=== PATIENT | female | born 1985 | race Caucasian/White ===

== ENCOUNTER 2016-09-01 12:40 | Outpatient (CLI) | payer OTHER ==
[~2016-09-01] VITALS: Ht 165.1 cm; Wt 82.0 kg
[2016-09-01 12:55] VITALS: BP 126/75
[2016-09-01] MEDS ORDERED: ONDANSETRON 4MG/2ML VIAL (J2405) IV SCH (13:45)
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
[2016-09-01] MEDS ORDERED: FOLIC ACID IV ONE (15:00)
[2016-09-01] MEDS ORDERED: MULTIVITAMIN ADULT IV ONE (15:00)
[2016-09-01] MEDS ORDERED: THIAMINE HCL IV ONE (15:00)
[2016-09-01] MEDS ORDERED: [UNRECOGNIZED DRUG - OTHER] IV ONE (15:00)
--- NOTE | 2016-09-01 17:03 | IPNPDOC ---
Obstetrical Progress Note Date of Service The patient was seen on 09/01/16 at 16:55. Progress Note Subjective: Patient reports that she is feeling much better. She was able to tolerate clear liquid tray without vomiting. Currently denies nausea. Objective: See vital signs below. heart rate prior to being taken off the monitor was 150 bpm for the baseline with accelerations and moderate variability. Contractions have spaced out. Assessment: IUP at 34 weeks and 5 days, category 1 tracing, not in labor, nausea and vomiting in Plan: Discharge to home. Prescription written for Zofran 4 mg that can be taken every 6 hours as needed for nausea. Education done on comfort measures for nausea. Reviewed viral gastrointestinal illness then needs to run its course. Patient advised if she is unable to keep any fluids down for 24 hours that she needs to call her provider. VS, I&O, 24H, Fishbone VS, I&O, 24H, Fishbone Vital Signs Date Time Temp Pulse Resp B/P Pulse Ox O2 Delivery O2 Flow Rate FiO2 09/01/16 12:55 98.0 96 18 126/75 Room Air SÁNCHEZ REA CNM Sep 01, 2016 16:57
== END 2016-09-01 15:40 | disposition home or self-care (01) ==
LOC: M LDO 12:40
PROVIDERS: ATTEND Obstetrics & Gynecology
DX: O21.2 Late vomiting of pregnancy (principal); Z3A.34 34 weeks gestation of pregnancy; O99.513 Diseases of the respiratory system complicating pregnancy, third trimester; J45.909 Unspecified asthma, uncomplicated; O28.2 Abnormal cytological finding on antenatal screening of mother; O99.343 Other mental disorders complicating pregnancy, third trimester; F90.9 Attention-deficit hyperactivity disorder, unspecified type; F31.9 Bipolar disorder, unspecified; F42.9 Obsessive-compulsive disorder, unspecified; F84.5 Asperger's syndrome; F95.2 Tourette's disorder; Z79.899 Other long term (current) drug therapy; Z87.891 Personal history of nicotine dependence
CPT/HCPCS: 96374; J2405; J3411

== ENCOUNTER → 2016-09-14 | Outpatient (REF) | payer OTHER | LOC: M LAB REF 16:52 | PROVIDERS: ATTEND Obstetrics & Gynecology | DX: Z3A.36 36 weeks gestation of pregnancy (principal) ==

== ENCOUNTER 2016-09-24 12:19 | Inpatient (IN) | payer OTHER ==
[~2016-09-24] VITALS: Ht 165.1 cm; Wt 74.0 kg
[2016-09-24 12:40] VITALS: BP 150/81
[2016-09-24] MEDS ORDERED: LR 1,000 ML IV SCH ×2 (13:02→14:00)
[2016-09-24] MEDS ORDERED: LACTATED RINGER'S 1000 ML IV STA (13:02)
[2016-09-24] MEDS ORDERED: PRENTAB9 PO (13:07)
[2016-09-24] MEDS ORDERED: CLAR10CA3 PO (13:07)
[2016-09-24] MEDS ORDERED: ASMA220A5 IN (13:07)
[2016-09-24] MEDS ORDERED: ANTA500C PO (13:07)
[2016-09-24] MEDS ORDERED: ACET50TA PO (13:07)
[2016-09-24] MEDS ORDERED: LACTATED RINGER'S 1000 ML IV ONE (13:15)
[2016-09-24] MEDS: miSOPROStol 50 MCG 1/2 TAB (S0191) PO SCH ×2 (13:31→17:38)
[2016-09-24 13:40] LABS: BASO % 0.1 % (0.0-1.0); EOS % 0.3 % (0.0-3.0); LARGE UNSTAINED CELL # 0.1 K/mm3 (0.0-0.4); LARGE UNSTAINED CELL % 0.8 % (0.0-4.0); LYMPH # 1.5 K/mm3 (1.5-6.5); LYMPH % 11.3 % (24.0-44.0); MEAN CORPUSCULAR HEMOGLOBIN 30.7 pg (27.0-33.0); MEAN CORPUSCULAR HGB CONC 33.6 g/dl (32.0-36.5); MEAN CORPUSCULAR VOLUME 91.3 fl (80.0-96.0); MONO # 0.6 K/mm3 (0.0-0.8); MONO % 4.9 % (0.0-5.0); NEUTROPHILS # 10.5 K/mm3 (1.8-7.7); NEUTROPHILS % 82.6 % (36.0-66.0); PLATELET COUNT, AUTOMATED 346 k/mm3 (150-450); RED CELL DISTRIBUTION WIDTH 12.3 % (11.5-14.5); WHITE BLOOD COUNT 12.7 K/mm3 (4.0-10.0)
[2016-09-24 13:47] LABS: AMPHETAMINES URINE REFLEX NEGATIVE (NEGATIVE); BARBITURATES URINE REFLEX NEGATIVE (NEGATIVE); BENZODIAZEPINES URINE REFLEX NEGATIVE (NEGATIVE); COCAINE METABOLITE URINE REFLE NEGATIVE (NEGATIVE); CONTROL LINE INT CTR LINE PRESENT; METHADONE URINE REFLEX NEGATIVE (NEGATIVE); OPIATES URINE REFLEX NEGATIVE (NEGATIVE); TRICYCLIC ANTIDEPRESS UR REFL NEGATIVE (NEGATIVE)
[2016-09-24 14:50] VITALS: BP 137/74
[2016-09-24 15:41] VITALS: BP 141/86
[2016-09-24 16:47] VITALS: BP 109/72
[2016-09-24 17:38] VITALS: BP 140/65
[2016-09-24 18:38] VITALS: BP 134/65
[2016-09-24] MEDS ORDERED: FENTANYL 2MCG/ML ROPIVACAINE 0.2% NACL 250 ML CADD As Ordered ONE (19:14)
[2016-09-24] MEDS ORDERED: LACTATED RINGER'S 1000 ML IV PRN (19:52)
[2016-09-24] MEDS ORDERED: EPIDURAL/PCA KEYS XX PRN (19:52)
[2016-09-24] MEDS ORDERED: REFRIGERATOR IV KEYS XX PRN (19:52)
[2016-09-24] MEDS ORDERED: ePHEDrine SULFATE 25 MG/5 ML(5MG/ML) SYRINGE IV PRN (19:52)
[2016-09-24] MEDS ORDERED: ONDANSETRON 4MG/2ML VIAL (J2405) IV PRN (19:52)
[2016-09-24] MEDS ORDERED: FENTANYL/ROPIVACAINE/NACL CADD 250 ML EPIDURAL SCH (19:52)
[2016-09-24] MEDS ORDERED: EPIDURAL COMMENT XX SCH (19:52)
[2016-09-24] MEDS ORDERED: diphenhydrAMINE INJ 50MG/ML VIAL (J1200) IV PRN (19:52)
[2016-09-24] MEDS ORDERED: NALOXONE INJ 0.4 MG/1 ML VIAL (J2310) IV PRN (19:52)
[2016-09-24] MEDS ORDERED: OXYTOCIN 30 UNITS IN 0.9% NaCl 500ML IV BAG (J2590) As Ordered ONE (22:34)
[2016-09-24] MEDS ORDERED: OXYTOCIN DRIP 30 UNITS in APPROPRIATE DILUENT 1 EA IV SCH (23:10)
[2016-09-24] MEDS ORDERED: ACETAMINOPHEN 500 MG TAB PO PRN (23:15)
[2016-09-24] MEDS ORDERED: MEASLES,MUMPS,RUBELLA VACCINE INJ (MMR-II) (90707) SC SCH (23:15)
[2016-09-24] MEDS ORDERED: DOCUSATE SODIUM 100 MG CAP PO PRN (23:15)
[2016-09-24] MEDS ORDERED: RHOGAM 300 MCG (1500 IU) INJ (J2790) IM SCH (23:15)
[2016-09-24] MEDS ORDERED: METHYLERGONOVINE MALEATE 0.2 MG TAB PO PRN (23:15)
[2016-09-24] MEDS ORDERED: DIBUCAINE 1% OINTMENT 30GM TOP PRN (23:15)
[2016-09-24] MEDS ORDERED: METHYLERGONOVINE MALEATE 0.2 MG/ML VIAL (J2210) IM PRN (23:15)
[2016-09-24 23:19] LABS: CORD GAS ABE A -2.5; CORD GAS HCO3 A 24.9 MEQ/L; CORD GAS O2 SAT A 36.1 %; CORD GAS PCO2 A 52.4 mmHg; CORD GAS PH A 7.294 UNITS; CORD GAS SBC A 20.7 MEQ/L; CORD GAS TCO2 A 26.5 MEQ/L
[2016-09-24 23:22] LABS: CORD GAS ABE V -3.3; CORD GAS HCO3 V 23.1 MEQ/L; CORD GAS O2 SAT V 56.8 %; CORD GAS PCO2 V 46.3 mmHg; CORD GAS PH V 7.316 UNITS; CORD GAS PO2 V 23.7 mmHg; CORD GAS SBC V 20.6 MEQ/L; CORD GAS TCO2 V 24.5 MEQ/L
[2016-09-25 01:39] VITALS: BP 123/58
[2016-09-25 05:56] VITALS: BP 132/73
--- NOTE | 2016-09-25 06:51 | HPE ---
DATE OF ADMISSION: 09/24/2016 Adamaris is a 31-year-old female 7, para 2-0-4-2 with an estimated date of confinement (EDC) of 10/08/2016, estimated gestational age (EGA) 38 weeks gestation who presented to labor and delivery with gross rupture of membranes with irregular contraction, no movement. Her record reviewed. The patient does have a history of depression, bipolar and attention deficit hyperactivity disorder (ADHD). Her care was initiated late first trimester without any complication. Blood type is O+, rubella immune, hepatitis negative, HIV negative, GC chlamydia negative, 1-hour sugar testing was within normal limits. Her GBS is negative. PAST MEDICAL HISTORY: 1. Depression. 2. Anxiety. 3. Bipolar disorder. 4. History of asthma. 5. Gastrointestinal reflux disease. PAST SURGICAL HISTORY: Denies. SOCIAL HISTORY: Denies any alcohol abuse. She is a current daily smoker, smokes approximately five cigarettes per day. MEDICATIONS: - Nexium The patient was on Trileptal, Effexor, Strattera and Seroquel. EXAMINATION: GENERAL: Normal appearing female in no acute distress. ABDOMEN: Soft, nontender, nondistended. EXTREMITIES: No clubbing, cyanosis or edema. VAGINAL EXAM: Gross rupture of membrane with pooling. Cervix is 2 cm dilated, 60% effaced, fetus in a vertex position. Tracing reviewed, category one tracing with irregular contractions. ASSESSMENT: 1. Intrauterine at 38 weeks gestation with gross rupture of membranes. 2. Group B Streptococcus (GBS) negative. PLAN: Admit to labor and delivery. Labs and intravenous (IV) fluids initiated. The patient will undergo a Cytotec induction followed by Pitocin and possible epidural for pain control. The process was discussed with the patient in detail. She is fully aware of the plan.
[2016-09-25] MEDS: FERROUS SULFATE 325MG TAB PO SCH (07:55)
[2016-09-25] MEDS: PRENATAL VITAMIN TAB PO SCH (09:00)
--- NOTE | 2016-09-25 09:21 | DN ---
DATE: 09/24/2016 Adamaris is a 31-year-old female 7, para 2-0-4-2 who is admitted at 38 weeks gestation with spontaneous rupture of membranes. She underwent two doses of Cytotec and progressed to fully dilated and delivered a live male in left occiput anterior position over an intact perineum. scores 9 and 9. weight 6 pounds 8 ounces. Placenta delivered spontaneously intact. Three-vessel cord. Perineum, vagina, cervix inspected. No laceration noted. Estimated blood loss 250 mL. Both mother and baby in stable condition.
--- NOTE | 2016-09-25 11:37 | IPNPDOC ---
Obstetrical Progress Note Date of Service The patient was seen on 09/25/16 at 09:34. Progress Note Subjective: Patient has no complaints. Reports she is breast-feeding without difficulty. His voiding without difficulty. Objective: See vital signs below. Fundus firm at uterus. Lochia moderate. No clots. Bilateral extremities with no edema. Assessment: Day 1 . Plan: Continue supportive nursing care and supportive breast-feeding care. PFS to see patient today. VS, I&O, 24H, Fishbone Vital Signs/I&O Vital Signs Date Time Temp Pulse Resp B/P Pulse Ox O2 Delivery O2 Flow Rate FiO2 09/25/16 05:56 97.6 86 16 132/73 Laboratory Data 24H LABS Laboratory Tests 2 09/24/16 13:03: Serology Scanned Report Hepatitis B Testing 09/24/16 13:28: Urine Amphetamines Screen NEGATIVE, Urine Benzodiazepines Screen NEGATIVE, Urine Cannabinoids NEGATIVE, Urine Cocaine Metabolite NEGATIVE, Urine Opiates Screen NEGATIVE, Urine Barbiturates Screen NEGATIVE, Urine Methadone Screen NEGATIVE, Urine Tricyclic Antidepressants NEGATIVE 09/24/16 13:35: White Blood Count 12.7H, Red Blood Count 4.01, Hemoglobin 12.3, Hematocrit 36.6 , Mean Corpuscular Volume 91.3, Mean Corpuscular Hemoglobin 30.7, Mean Corpuscular Hemoglobin Concent 33.6, Red Cell Distribution Width 12.3, Platelet Count 346, Neutrophils (%) (Auto) 82.6H, Lymphocytes (%) (Auto) 11.3L, Monocytes (%) (Auto) 4.9, Eosinophils (%) (Auto) 0.3, Basophils (%) (Auto) 0.1, Neutrophils # (Auto) 10.5H, Lymphocytes # (Auto) 1.5, Monocytes # (Auto) 0.6, Eosinophils # (Auto) 0.0, Basophils # (Auto) 0.0, Large Unclassified Cells # 0.1 , Large Unclassified Cells % 0.8 09/24/16 23:07: Cord Arterial Base Excess (Standard 20.7, Cord Arterial Bld Oxygen Saturation 36.1, Cord Arterial Blood Base Excess -2.5, Cord Arterial Blood HCO3 24.9, Cord Arterial Blood PCO2 52.4, Cord Arterial Blood PO2 18.0, Cord Arterial Blood Total CO2 26.5, Cord Arterial Blood pH 7.294, Cord Venous Base Excess (Actual) - 3.3, Cord Venous Base Excess (Standard) 20.6, Cord Venous Blood HCO3 23.1, Cord Venous Blood Oxygen Saturation 56.8, Cord Venous Blood PCO2 46.3, Cord Venous Blood PO2 23.7, Cord Venous Blood Total CO2 24.5, Cord Venous Blood pH 7.316 CBC/BMP Laboratory Tests 09/24/16 13:35 Red Blood Count 4.01, Mean Corpuscular Volume 91.3, Mean Corpuscular Hemoglobin 30.7, Mean Corpuscular Hemoglobin Concent 33.6, Red Cell Distribution Width 12.3 , Neutrophils (%) (Auto) 82.6 H, Lymphocytes (%) (Auto) 11.3 L, Monocytes (%) ( Auto) 4.9, Eosinophils (%) (Auto) 0.3, Basophils (%) (Auto) 0.1, Neutrophils # ( Auto) 10.5 H, Lymphocytes # (Auto) 1.5, Monocytes # (Auto) 0.6, Eosinophils # ( Auto) 0.0, Basophils # (Auto) 0.0 SÁNCHEZ REA CNM Sep 25, 2016 11:37
[2016-09-25 18:16] VITALS: BP 120/75
[2016-09-26 06:00] VITALS: BP 129/74
[2016-09-26] MEDS: PRENATAL VITAMIN TAB PO SCH (07:56)
[2016-09-26] MEDS: FERROUS SULFATE 325MG TAB PO SCH (07:56)
[2016-09-26] MEDS ORDERED: IBUP-1114 PO (14:25)
== END 2016-09-26 17:50 | disposition home or self-care (01) | DRG 560 ==
LOC: M LDO 12:19 → M LDI 12:57 → M OBS 09-25 00:59
PROVIDERS: ADMIT Obstetrics & Gynecology; ATTEND Obstetrics & Gynecology
PROC: 10E0XZZ Delivery of Products of Conception, External Approach (ICD-10-PCS; principal; 2016-09-24)
DX: O99.344 Other mental disorders complicating childbirth (principal); O99.334 Smoking (tobacco) complicating childbirth; F84.5 Asperger's syndrome; F17.210 Nicotine dependence, cigarettes, uncomplicated; Z3A.38 38 weeks gestation of pregnancy; K21.9 Gastro-esophageal reflux disease without esophagitis; F31.9 Bipolar disorder, unspecified; O99.62 Diseases of the digestive system complicating childbirth; F41.9 Anxiety disorder, unspecified; Z37.0 Single live birth

== ENCOUNTER → 2016-12-06 | Outpatient (CLI) | payer OTHER ==
[~2016-12-06] MED LIST: ACET50TA PO; ALBU17IN INH; ANTA500C PO; ASMA220A5 IN; CENTTAB36 PO; CLAR10CA3 PO; IBUP-1114 PO; PRENTAB9 PO; VALT500T PO
[2016-12-06 10:34] LABS: ALBUMIN 3.9 GM/DL (3.2-5.2); ALBUMIN/GLOBULIN RATIO 1.08 (1.00-1.93); ALKALINE PHOSPHATASE 88 U/L (45-117); ALT/SGPT 26 U/L (12-78); ANION GAP 5 MEQ/L (8-16); AST/SGOT 19 U/L (15-37); BILIRUBIN,TOTAL 0.3 MG/DL (0.2-1.0); BLOOD UREA NITROGEN 15 MG/DL (7-18); CALCIUM LEVEL 9.1 MG/DL (8.5-10.1); CARBON DIOXIDE LEVEL 30 MEQ/L (21-32); CHLORIDE LEVEL 104 MEQ/L (98-107); CREATININE FOR GFR 0.68 MG/DL (0.55-1.02); GLOMERULAR FILTRATION RATE > 60.0 (>60); GLUCOSE, FASTING 75 MG/DL (70-105); POTASSIUM SERUM 4.2 MEQ/L (3.5-5.1); SODIUM LEVEL 139 MEQ/L (136-145); TOTAL PROTEIN 7.5 GM/DL (6.4-8.2)
[2016-12-06 10:38] LABS: VITAMIN B12 LEVEL 495 PG/ML
[2016-12-06 10:39] LABS: FOLATE > 24.0 NG/ML
== END ==
LOC: M LAB 08:15
PROVIDERS: ATTEND Psychiatry & Neurology Psychiatry
DX: Z79.899 Other long term (current) drug therapy (principal)

== ENCOUNTER → 2016-12-06 | Outpatient (CLI) | payer OTHER ==
[2016-12-06 10:02] LABS: BASO % 0.4 % (0.0-1.0); EOS % 0.7 % (0.0-3.0); LYMPH # 1.4 K/mm3 (1.5-6.5); LYMPH % 19.1 % (24.0-44.0); MEAN CORPUSCULAR HEMOGLOBIN 31.4 pg (27.0-33.0); MEAN CORPUSCULAR HGB CONC 33.2 g/dl (32.0-36.5); MEAN CORPUSCULAR VOLUME 94.3 fl (80.0-96.0); MONO # 0.6 K/mm3 (0.0-0.8); MONO % 7.5 % (0.0-5.0); NEUTROPHILS # 5.4 K/mm3 (1.8-7.7); NEUTROPHILS % 71.1 % (36.0-66.0); RED CELL DISTRIBUTION WIDTH 11.9 % (11.5-14.5); WHITE BLOOD COUNT 7.5 K/mm3 (4.0-10.0)
[2016-12-06 10:19] LABS: ALBUMIN 3.9 GM/DL (3.2-5.2); ALBUMIN/GLOBULIN RATIO 1.18 (1.00-1.93); ALKALINE PHOSPHATASE 88 U/L (45-117); ALT/SGPT 26 U/L (12-78); ANION GAP 8 MEQ/L (8-16); AST/SGOT 13 U/L (15-37); BILIRUBIN,TOTAL 0.3 MG/DL (0.2-1.0); BLOOD UREA NITROGEN 14 MG/DL (7-18); CALCIUM LEVEL 8.4 MG/DL (8.5-10.1); CARBON DIOXIDE LEVEL 28 MEQ/L (21-32); CHLORIDE LEVEL 101 MEQ/L (98-107); CHOLESTEROL LEVEL 159 MG/DL (<200); CREATININE FOR GFR 0.69 MG/DL (0.55-1.02); FREE T4 0.99 NG/DL (0.76-1.46); GLOMERULAR FILTRATION RATE > 60.0 (>60); GLUCOSE, FASTING 77 MG/DL (70-105); SODIUM LEVEL 137 MEQ/L (136-145); TOTAL PROTEIN 7.2 GM/DL (6.4-8.2); TRIGLYCERIDES LEVEL 61 MG/DL (<150)
== END ==
LOC: M LAB 08:11
PROVIDERS: ATTEND Nurse Practitioner Adult Health
DX: F31.9 Bipolar disorder, unspecified (principal)

== ENCOUNTER → 2016-12-15 | Day surgery (SDC) | payer OTHER ==
[~2016-12-15] VITALS: Ht 165.1 cm; Wt 71.2 kg
[~2016-12-15] MED LIST changes: +ACETAMINOPHEN 650 MG SUPP As Ordered ONE; +ACETAMINOPHEN 650 MG SUPP PR ONE; +ALBUTEROL SULFATE 2.5 MG/0.5 ML INH NEB SOLN As Ordered ONE; +ALBUTEROL SULFATE 2.5 MG/0.5 ML INH NEB SOLN INH ONE; +BUPIVACAINE/EPIN 0.25% 30 ML VIAL As Ordered ONE; +GLYCOPYRROLATE INJ 0.2 MG/ML 2 ML VIAL As Ordered ONE; +HYDROmorphone HCL 2 MG/ML 1ML VIAL (J1170) As Ordered ONE; +IBUP80TA PO; +KETOROLAC 60 MG/2 ML VIAL (J1885) As Ordered ONE; +LIDOCAINE 2% INJ 100 MG/5 ML SDV (FOR ANES.) As Ordered ONE; +LR 1,000 ML IV ONE; +LR 1,000 ML IV SCH; +MEPERIDINE INJ 25 MG/ML VIAL (J2175) As Ordered ONE; +MEPERIDINE INJ 25 MG/ML VIAL (J2175) IV PRN; +MIDAZOLAM INJ 2 MG/2 ML VIAL (J2250) As Ordered ONE; +NEOSTIGMINE 1MG/ML 5 ML SYRINGE (J2710) As Ordered ONE; +ONDANSETRON 4MG/2ML VIAL (J2405) As Ordered ONE; +ONDANSETRON 4MG/2ML VIAL (J2405) IV PRN; +PERCOCET 5MG/325MG TAB As Ordered ONE; +PERCOCET 5MG/325MG TAB PO PRN; +PROPOFOL 200 MG/20 ML VIAL As Ordered ONE; +ROCURONIUM BROMIDE 50 MG/5 ML VIAL As Ordered ONE; +dexameTHASONE 4 MG/ML 1ML VIAL (J1100) As Ordered ONE; +fentaNYL 100 MCG/2 ML INJECTION (J3010) As Ordered ONE; +fentaNYL 100 MCG/2 ML INJECTION (J3010) IV PRN
[2016-12-15 06:39] LABS: MEAN CORPUSCULAR VOLUME 93.7 fl (80.0-96.0); RED CELL DISTRIBUTION WIDTH 11.9 % (11.5-14.5); WHITE BLOOD COUNT 6.1 K/mm3 (4.0-10.0)
[2016-12-15 06:48] LABS: CONTROL LINE HCG INT CTR LINE PRESENT
--- NOTE | 2016-12-15 08:21 | RO ---
DATE OF PROCEDURE: 12/15/2016 Adamaris is a 31-year-old multiparous lady who desires permanent tubal sterilization. After counseling in the office, decision was made for laparoscopic bilateral tubal ligation. PREPROCEDURE DIAGNOSIS: Multiparity. POSTPROCEDURE DIAGNOSIS: Multiparity. PROCEDURE: Laparoscopic bilateral tubal ligation using Filshie clip. SURGEON: Elias Tracy D.O. ANESTHESIA: Spinal COMPLICATIONS: None ESTIMATED BLOOD LOSS: Less than 20 mL DESCRIPTION OF PROCEDURE: After obtaining informed consent, the patient was taken to the operating room where general anesthetic was found to be adequate. She was then draped and prepped in the usual sterile fashion in the dorsal lithotomy position. At this point, a sponge stick was placed in the vagina. We then turned our attention to the abdomen where a 5 mm infraumbilical incision was made. Using a Veress needle, the abdomen was insufflated with CO2 gas to approximately 3.5 liters. At this point, a 5 mm XL trocar, as well as the laparoscope was inserted under direct visualization. An 8 mm right lateral port was placed. The patient was placed in Trendelenburg. The uterus was elevated. Bilateral fallopian tube was identified and the Filshie clip was then applied approximately 2-3 cm away from the cornual area on each tube. The pelvis was then copiously irrigated with normal saline. Good hemostasis was noted. All instruments removed. The laparoscopic scars were closed using Dermabond. 0.25% Marcaine was placed for postoperative pain. The patient tolerated the procedure well. She was then transferred to the recovery room in stable condition.
[2016-12-15] MEDS: MEPERIDINE INJ 25 MG/ML VIAL (J2175) IV PRN ×2 (08:27→08:35)
[2016-12-15 11:04] VITALS: BP 118/69
== END ==
LOC: M SDC 06:01
PROVIDERS: ATTEND Obstetrics & Gynecology
DX: Z30.2 Encounter for sterilization (principal); E16.2 Hypoglycemia, unspecified; K21.9 Gastro-esophageal reflux disease without esophagitis; R87.810 Cervical high risk human papillomavirus (HPV) DNA test positive; M41.9 Scoliosis, unspecified; M65.842 Other synovitis and tenosynovitis, left hand; F84.5 Asperger's syndrome; F31.9 Bipolar disorder, unspecified; G43.909 Migraine, unspecified, not intractable, without status migrainosus; J45.909 Unspecified asthma, uncomplicated; R06.02 Shortness of breath; Z87.891 Personal history of nicotine dependence; Z88.8 Allergy status to other drugs, medicaments and biological substances; Z79.899 Other long term (current) drug therapy
CPT/HCPCS: 36415; 58671; 84703; 85027; 86850; 86900; 86901; A4649; J1100; J1170; J1885; J2175; J2250; J2405; J2710; J3010

== ENCOUNTER 2017-05-07 17:37 | Emergency (ER) | payer OTHER ==
[~2017-05-07] VITALS: Ht 165.1 cm; Wt 63.6 kg
[~2017-05-07 17:37] MED LIST changes: -ACETAMINOPHEN 650 MG SUPP As Ordered ONE; -ACETAMINOPHEN 650 MG SUPP PR ONE; -ALBUTEROL SULFATE 2.5 MG/0.5 ML INH NEB SOLN As Ordered ONE; -ALBUTEROL SULFATE 2.5 MG/0.5 ML INH NEB SOLN INH ONE; -BUPIVACAINE/EPIN 0.25% 30 ML VIAL As Ordered ONE; -GLYCOPYRROLATE INJ 0.2 MG/ML 2 ML VIAL As Ordered ONE; -HYDROmorphone HCL 2 MG/ML 1ML VIAL (J1170) As Ordered ONE; -KETOROLAC 60 MG/2 ML VIAL (J1885) As Ordered ONE; -LIDOCAINE 2% INJ 100 MG/5 ML SDV (FOR ANES.) As Ordered ONE; -LR 1,000 ML IV ONE; -LR 1,000 ML IV SCH; -MEPERIDINE INJ 25 MG/ML VIAL (J2175) As Ordered ONE; -MEPERIDINE INJ 25 MG/ML VIAL (J2175) IV PRN; -MIDAZOLAM INJ 2 MG/2 ML VIAL (J2250) As Ordered ONE; -NEOSTIGMINE 1MG/ML 5 ML SYRINGE (J2710) As Ordered ONE; -ONDANSETRON 4MG/2ML VIAL (J2405) As Ordered ONE; -ONDANSETRON 4MG/2ML VIAL (J2405) IV PRN; -PERCOCET 5MG/325MG TAB As Ordered ONE; -PERCOCET 5MG/325MG TAB PO PRN; -PROPOFOL 200 MG/20 ML VIAL As Ordered ONE; -ROCURONIUM BROMIDE 50 MG/5 ML VIAL As Ordered ONE; -dexameTHASONE 4 MG/ML 1ML VIAL (J1100) As Ordered ONE; -fentaNYL 100 MCG/2 ML INJECTION (J3010) As Ordered ONE; -fentaNYL 100 MCG/2 ML INJECTION (J3010) IV PRN
[2017-05-07 17:38] VITALS: BP 131/82
== END 2017-05-07 18:44 | disposition home or self-care (01) ==
LOC: M ED 17:37
DX: S60.455A Superficial foreign body of left ring finger, initial encounter (principal); X58.XXXA Exposure to other specified factors, initial encounter; Y92.89 Other specified places as the place of occurrence of the external cause; Y93.89 Activity, other specified; Y99.9 Unspecified external cause status

== ENCOUNTER → 2017-05-16 | Outpatient (REF) ==
[~2017-05-16] MED LIST changes: +LATU20TA PO; +LITH300C PO
--- NOTE | 2017-05-16 13:05 | REP ---
PARTIAL LUMBAR SPINE, THREE VIEWS: HISTORY: Degenerative disc disease. COMPARISON: 12/09/2014. There is no acute fracture or subluxation. The intervertebral discs are normal in height. IMPRESSION: There is no acute fracture or subluxation. Signed by Anish Myers MD 05/16/2017 01:10 P
== END ==
LOC: M SMT 11:13
PROVIDERS: ATTEND Internal Medicine
DX: M54.5 Low back pain (principal)

== ENCOUNTER → 2017-05-23 | Outpatient (CLI) | payer OTHER | LOC: M LAB 11:10 | PROVIDERS: ATTEND Registered Nurse Psychiatric/Mental Health | DX: F31.9 Bipolar disorder, unspecified (principal); Z79.899 Other long term (current) drug therapy ==

== ENCOUNTER 2017-05-27 13:35 | Emergency (ER) | payer OTHER ==
[~2017-05-27] VITALS: Ht 165.1 cm; Wt 63.6 kg
[~2017-05-27 13:35] MED LIST changes: -LATU20TA PO; -LITH300C PO
[2017-05-27] MEDS ORDERED: LITH300C PO (13:45)
[2017-05-27] MEDS ORDERED: LATU20TA PO (13:45)
--- NOTE | 2017-05-27 14:58 | REP ---
Right great toe series: Four views. History: Injury to the great toe. Comparison radiographs are from January 02, 2015. Findings: Today's views demonstrate normal bones, joints, and soft tissues. No fracture or subluxation is seen. Impression: No fracture noted. Signed by Anand Blake MD 05/27/2017 03:09 P
[2017-05-27] MEDS ORDERED: PERCOCET 5MG/325MG TAB PO ONE (17:15)
[2017-05-27 17:16] VITALS: BP 123/67
== END 2017-05-27 17:20 | disposition home or self-care (01) ==
LOC: M ED 13:35
DX: S93.501A Unspecified sprain of right great toe, initial encounter (principal); X58.XXXA Exposure to other specified factors, initial encounter; Y92.018 Other place in single-family (private) house as the place of occurrence of the external cause; Y93.89 Activity, other specified; Y99.8 Other external cause status; J45.909 Unspecified asthma, uncomplicated; E16.2 Hypoglycemia, unspecified; Z88.8 Allergy status to other drugs, medicaments and biological substances; Z87.891 Personal history of nicotine dependence

== ENCOUNTER 2017-06-27 18:18 | Emergency (ER) | payer OTHER ==
[~2017-06-27] VITALS: Ht 165.1 cm; Wt 62.6 kg
[~2017-06-27 18:18] MED LIST changes: +LATU20TA PO; +LITH300C PO
[2017-06-27] MEDS ORDERED: MULTCHW14 PO (18:31)
[2017-06-27] MEDS ORDERED: FLON1SPR (21:12)
[2017-06-27] MEDS ORDERED: IBUP80TA PO (21:12)
[2017-06-27] MEDS ORDERED: IBUPROFEN 800 MG TAB As Ordered ONE (21:14)
[2017-06-27 21:15] VITALS: BP 116/72
[2017-06-27] MEDS ORDERED: IBUPROFEN 800 MG TAB PO ONE (21:15)
== END 2017-06-27 21:23 | disposition home or self-care (01) ==
LOC: EDBD 18:18 → M ED 18:18 → EDSEX 18:18 → M ED 21:23
DX: J32.9 Chronic sinusitis, unspecified (principal); J45.909 Unspecified asthma, uncomplicated; F41.9 Anxiety disorder, unspecified; F33.9 Major depressive disorder, recurrent, unspecified; Z79.899 Other long term (current) drug therapy; F17.210 Nicotine dependence, cigarettes, uncomplicated

== ENCOUNTER 2017-08-15 17:21 | Emergency (ER) | payer OTHER | END 2017-08-15 20:50 | disposition home or self-care (01) | LOC: M ED 17:21 | DX: M43.6 Torticollis (principal); H68.011 Acute Eustachian salpingitis, right ear; F31.9 Bipolar disorder, unspecified; Z79.899 Other long term (current) drug therapy; Z79.51 Long term (current) use of inhaled steroids; Z88.8 Allergy status to other drugs, medicaments and biological substances; F17.210 Nicotine dependence, cigarettes, uncomplicated | CPT/HCPCS: 99283 ==

== ENCOUNTER → 2017-09-13 | Outpatient (CLI) | payer OTHER | LOC: M PAIN 13:00 | DX: G89.29 Other chronic pain (principal); M53.3 Sacrococcygeal disorders, not elsewhere classified; M25.552 Pain in left hip; F31.9 Bipolar disorder, unspecified; J45.909 Unspecified asthma, uncomplicated; F17.210 Nicotine dependence, cigarettes, uncomplicated; R06.83 Snoring; Z79.899 Other long term (current) drug therapy; Z88.8 Allergy status to other drugs, medicaments and biological substances; Z91.040 Latex allergy status; Z91.030 Bee allergy status; Z91.018 Allergy to other foods; Z87.820 Personal history of traumatic brain injury | CPT/HCPCS: G0463 ==

== ENCOUNTER → 2017-09-13 | Outpatient (CLI) | payer OTHER | LOC: M RAD 15:18 | DX: M25.552 Pain in left hip (principal) | CPT/HCPCS: 73502 ==

== ENCOUNTER → 2017-10-11 | Outpatient (CLI) | payer OTHER | LOC: M PAIN 11:15 | DX: M51.36 Other intervertebral disc degeneration, lumbar region (principal); G89.29 Other chronic pain; F31.9 Bipolar disorder, unspecified; G43.909 Migraine, unspecified, not intractable, without status migrainosus; J45.909 Unspecified asthma, uncomplicated; F17.210 Nicotine dependence, cigarettes, uncomplicated; Z79.899 Other long term (current) drug therapy; Z88.8 Allergy status to other drugs, medicaments and biological substances; Z91.040 Latex allergy status; Z91.030 Bee allergy status; Z91.018 Allergy to other foods; Z87.820 Personal history of traumatic brain injury | CPT/HCPCS: G0463 ==

== ENCOUNTER 2017-12-03 16:27 | Emergency (ER) | payer OTHER ==
[2017-12-03] MEDS: ALBUTEROL SULFATE 2.5 MG/0.5 ML INH NEB SOLN NEB (17:35)
[2017-12-03] MEDS: NS 1,000 ML IV (17:40)
[2017-12-03] MEDS: IBUPROFEN 800 MG TAB PO (17:41)
[2017-12-03] MEDS: methylPREDNISolone INJ 125 MG/2 ML VIAL (J2930) IV (17:41)
[2017-12-03 17:58] LABS: BASO % 0.2 % (0.0-1.0); EOS # 0.2 10^3/uL (0.0-0.50); EOS % 1.4 % (0.0-3.0); HEMOGLOBIN 13.5 g/dl (12.0-15.5); IMMATURE GRANULOCYTE % 0.2 % (0-3.0); LYMPH # 1.8 10^3/uL (1.5-4.5); LYMPH % 17.2 % (24.0-44.0); MEAN CORPUSCULAR HEMOGLOBIN 30.1 pg (27.0-33.0); MEAN CORPUSCULAR HGB CONC 32.1 g/dl (32.0-36.5); MEAN CORPUSCULAR VOLUME 93.5 fl (80.0-96.0); MONO # 0.8 10^3/uL (0.0-0.8); MONO % 7.7 % (0.0-5.0); NEUTROPHILS # 7.8 10^3/uL (1.8-7.7); NEUTROPHILS % 73.3 % (36.0-66.0); PLATELET COUNT, AUTOMATED 368 10^3/uL (150-450); RED BLOOD COUNT 4.49 10^6/uL (4.00-5.40); WHITE BLOOD COUNT 10.6 10^3/uL (4.0-10.0)
[2017-12-03 18:38] LABS: ALBUMIN 4.4 GM/DL (3.2-5.2); ALBUMIN/GLOBULIN RATIO 1.26 (1.00-1.93); ALKALINE PHOSPHATASE 70 U/L (45-117); ALT/SGPT 12 U/L (12-78); ANION GAP 5 MEQ/L (8-16); AST/SGOT 13 U/L (7-37); BILIRUBIN,DIRECT < 0.1 MG/DL (0.0-0.2); BILIRUBIN,TOTAL 0.4 MG/DL (0.2-1.0); BLOOD UREA NITROGEN 11 MG/DL (7-18); CALCIUM LEVEL 9.1 MG/DL (8.5-10.1); CARBON DIOXIDE LEVEL 29 MEQ/L (21-32); CHLORIDE LEVEL 105 MEQ/L (98-107); CREATININE FOR GFR 0.82 MG/DL (0.55-1.30); GLOMERULAR FILTRATION RATE > 60.0 (>60); GLUCOSE, FASTING 86 MG/DL (70-100); POTASSIUM SERUM 4.4 MEQ/L (3.5-5.1); SODIUM LEVEL 139 MEQ/L (136-145); THYROXINE (T4) 9.9 UG/DL (4.5-12.0); TOTAL PROTEIN 7.9 GM/DL (6.4-8.2)
== END 2017-12-03 19:31 | disposition home or self-care (01) ==
LOC: M ED 16:27
DX: M94.0 Chondrocostal junction syndrome [Tietze] (principal); R73.01 Impaired fasting glucose; J45.909 Unspecified asthma, uncomplicated; G43.909 Migraine, unspecified, not intractable, without status migrainosus; M54.9 Dorsalgia, unspecified; F31.9 Bipolar disorder, unspecified; F90.9 Attention-deficit hyperactivity disorder, unspecified type; F42.9 Obsessive-compulsive disorder, unspecified; F84.5 Asperger's syndrome; F95.2 Tourette's disorder; F17.200 Nicotine dependence, unspecified, uncomplicated; Z79.899 Other long term (current) drug therapy; Z91.030 Bee allergy status; Z88.8 Allergy status to other drugs, medicaments and biological substances
CPT/HCPCS: J2930

== ENCOUNTER → 2017-12-26 | Outpatient (CLI) | payer OTHER | LOC: M PAIN 14:00 | DX: G89.29 Other chronic pain (principal); M53.3 Sacrococcygeal disorders, not elsewhere classified; F31.9 Bipolar disorder, unspecified; G43.909 Migraine, unspecified, not intractable, without status migrainosus; J45.909 Unspecified asthma, uncomplicated; K21.9 Gastro-esophageal reflux disease without esophagitis; F90.9 Attention-deficit hyperactivity disorder, unspecified type; R73.03 Prediabetes; F17.210 Nicotine dependence, cigarettes, uncomplicated; Z79.899 Other long term (current) drug therapy; Z91.030 Bee allergy status; Z91.040 Latex allergy status; Z91.018 Allergy to other foods; Z88.8 Allergy status to other drugs, medicaments and biological substances | CPT/HCPCS: G0463 ==

== ENCOUNTER → 2018-01-16 | Outpatient (CLI) | payer OTHER ==
[~2018-01-16] MED LIST changes: -ACET50TA PO; -ALBU17IN INH; -ANTA500C PO; -ASMA220A5 IN; +BUPIVACAINE HCL 0.25% 30 ML VIAL As Ordered; -CENTTAB36 PO; -CLAR10CA3 PO; -IBUP-1114 PO; -IBUP80TA PO; +ISOVUE-M 300 61% 15ML VIAL (Q9967) As Ordered; -LATU20TA PO; +LIDOCAINE 1% SDV INJ 30 ML VIAL As Ordered; -LITH300C PO; -PRENTAB9 PO; +TRIAMCINOLONE ACETONIDE SUSP 40 MG/ML VIAL (J3301) As Ordered; -VALT500T PO; +diazePAM 5 MG TAB As Ordered; +oxyCODONE 5MG TAB As Ordered
== END ==
LOC: M PAIN 11:00
DX: G89.29 Other chronic pain (principal); M46.1 Sacroiliitis, not elsewhere classified; M53.88 Other specified dorsopathies, sacral and sacrococcygeal region; F31.9 Bipolar disorder, unspecified; G43.909 Migraine, unspecified, not intractable, without status migrainosus; J45.909 Unspecified asthma, uncomplicated; F17.210 Nicotine dependence, cigarettes, uncomplicated; Z79.899 Other long term (current) drug therapy; Z88.8 Allergy status to other drugs, medicaments and biological substances; Z91.040 Latex allergy status; Z91.030 Bee allergy status; Z91.018 Allergy to other foods; Z87.820 Personal history of traumatic brain injury
CPT/HCPCS: J3301

== ENCOUNTER 2018-01-25 19:16 | Emergency (ER) | payer OTHER ==
[2018-01-25] MEDS: ONDANSETRON 4 MG ORAL DISINTEGRATING TAB (Q0162 PER 1MG) PO (22:49)
[2018-01-25] MEDS: ACETAMINOPHEN 325 MG TAB PO (22:50)
[2018-01-25 23:04] LABS: HEMATOCRIT 41.3 % (36.0-47.0); HEMOGLOBIN 13.4 g/dl (12.0-15.5); MEAN CORPUSCULAR HEMOGLOBIN 30.3 pg (27.0-33.0); MEAN CORPUSCULAR HGB CONC 32.4 g/dl (32.0-36.5); MEAN CORPUSCULAR VOLUME 93.4 fl (80.0-96.0); PLATELET COUNT, AUTOMATED 443 10^3/uL (150-450); RED BLOOD COUNT 4.42 10^6/uL (4.00-5.40); RED CELL DISTRIBUTION WIDTH 12.3 % (11.5-14.5); WHITE BLOOD COUNT 13.7 10^3/uL (4.0-10.0)
[2018-01-25 23:10] LABS: KETONE, URINE AUTO RFX TRACE mg/dL (NEGATIVE); LEUKOCYTE ESTERASE UR AUTO RFX NEGATIVE (NEGATIVE); MUCUS, URINE RFX LARGE (NEGATIVE); NITRITE, URINE AUTO RFX NEGATIVE (NEGATIVE); RBC, URINE AUTO RFX 1 /HPF (0-3); SPECIFIC GRAVITY UR AUTO RFX 1.042 (1.002-1.035); SQUAM EPITHELIAL CELL UR AURFX 1 /HPF (0-6); TRANSITIONAL EPITHELIAL AU RFX <1 /HPF; WBC, URINE AUTO RFX 0 /HPF (0-3)
== END 2018-01-25 23:43 | disposition home or self-care (01) ==
LOC: M ED 19:16
DX: N93.8 Other specified abnormal uterine and vaginal bleeding (principal); M25.511 Pain in right shoulder; J45.909 Unspecified asthma, uncomplicated; Z91.030 Bee allergy status; Z91.040 Latex allergy status; Z88.8 Allergy status to other drugs, medicaments and biological substances; Z79.899 Other long term (current) drug therapy
CPT/HCPCS: Q0162

== ENCOUNTER → 2018-01-30 | Outpatient (CLI) | payer OTHER | LOC: M PAIN 11:00 | DX: M47.27 Other spondylosis with radiculopathy, lumbosacral region (principal); M54.5 Low back pain; F31.9 Bipolar disorder, unspecified; G43.909 Migraine, unspecified, not intractable, without status migrainosus; J45.909 Unspecified asthma, uncomplicated; F90.9 Attention-deficit hyperactivity disorder, unspecified type; K21.9 Gastro-esophageal reflux disease without esophagitis; Z91.040 Latex allergy status; Z91.030 Bee allergy status; Z91.018 Allergy to other foods; Z88.8 Allergy status to other drugs, medicaments and biological substances; Z79.899 Other long term (current) drug therapy | CPT/HCPCS: G0463 ==

== ENCOUNTER → 2018-02-19 | Outpatient (CLI) | payer OTHER ==
[2018-02-19 13:14] LABS: BASO % 0.2 % (0.0-1.0); EOS # 0.1 10^3/uL (0.0-0.50); EOS % 1.1 % (0.0-3.0); HEMATOCRIT 40.7 % (36.0-47.0); HEMOGLOBIN 13.2 g/dl (12.0-15.5); IMMATURE GRANULOCYTE % 0.2 % (0-3.0); LYMPH # 1.3 10^3/uL (1.5-4.5); LYMPH % 21.8 % (24.0-44.0); MEAN CORPUSCULAR HEMOGLOBIN 30.6 pg (27.0-33.0); MEAN CORPUSCULAR HGB CONC 32.4 g/dl (32.0-36.5); MEAN CORPUSCULAR VOLUME 94.4 fl (80.0-96.0); MONO # 0.5 10^3/uL (0.0-0.8); MONO % 8.7 % (0.0-5.0); NEUTROPHILS # 4.1 10^3/uL (1.8-7.7); PLATELET COUNT, AUTOMATED 374 10^3/uL (150-450); RED BLOOD COUNT 4.31 10^6/uL (4.00-5.40); RED CELL DISTRIBUTION WIDTH 12.1 % (11.5-14.5); WHITE BLOOD COUNT 6.1 10^3/uL (4.0-10.0)
[2018-02-19 13:50] LABS: ALBUMIN 4.1 GM/DL (3.2-5.2); ALBUMIN/GLOBULIN RATIO 1.17 (1.00-1.93); ALKALINE PHOSPHATASE 59 U/L (45-117); ALT/SGPT 17 U/L (12-78); ANION GAP 5 MEQ/L (8-16); AST/SGOT 8 U/L (7-37); BILIRUBIN,TOTAL 0.4 MG/DL (0.2-1.0); BLOOD UREA NITROGEN 10 MG/DL (7-18); CALCIUM LEVEL 9.2 MG/DL (8.5-10.1); CARBON DIOXIDE LEVEL 28 MEQ/L (21-32); CHLORIDE LEVEL 108 MEQ/L (98-107); CHOLESTEROL LEVEL 146 MG/DL (<200); CHOLESTEROL RISK RATIO 2.979 (<5); CREATININE FOR GFR 0.84 MG/DL (0.55-1.30); ESTIMATED AVERAGE GLUCOSE 85 MG/DL (60-110); FREE T4 1.07 NG/DL (0.76-1.46); GLOMERULAR FILTRATION RATE > 60.0 (>60); GLUCOSE, FASTING 86 MG/DL (70-100); HDL CHOLESTEROL 49 MG/DL (>40); HEMOGLOBIN A1c 4.6 %; LDL CHOLESTEROL 81.8 MG/DL (<100); NON-HDL-C 97 MG/DL; POTASSIUM SERUM 4.5 MEQ/L (3.5-5.1); SODIUM LEVEL 141 MEQ/L (136-145); TOTAL PROTEIN 7.6 GM/DL (6.4-8.2); TRIGLYCERIDES LEVEL 76 MG/DL (<150)
== END ==
LOC: M LAB 12:15
DX: F31.9 Bipolar disorder, unspecified (principal); E16.2 Hypoglycemia, unspecified; Z79.899 Other long term (current) drug therapy
CPT/HCPCS: 84443

== ENCOUNTER → 2018-02-21 | Outpatient (CLI) | payer OTHER ==
[~2018-02-21] MED LIST changes: -TRIAMCINOLONE ACETONIDE SUSP 40 MG/ML VIAL (J3301) As Ordered; -diazePAM 5 MG TAB As Ordered; -oxyCODONE 5MG TAB As Ordered
== END ==
LOC: M PAIN 11:45
DX: G89.29 Other chronic pain (principal); M47.816 Spondylosis without myelopathy or radiculopathy, lumbar region; M47.817 Spondylosis without myelopathy or radiculopathy, lumbosacral region; F31.9 Bipolar disorder, unspecified; G43.909 Migraine, unspecified, not intractable, without status migrainosus; J45.909 Unspecified asthma, uncomplicated; F90.9 Attention-deficit hyperactivity disorder, unspecified type; K21.9 Gastro-esophageal reflux disease without esophagitis; F17.210 Nicotine dependence, cigarettes, uncomplicated; Z79.899 Other long term (current) drug therapy; Z91.040 Latex allergy status; Z91.030 Bee allergy status; Z91.018 Allergy to other foods; Z91.410 Personal history of adult physical and sexual abuse
CPT/HCPCS: Q9967

== ENCOUNTER → 2018-03-14 | Outpatient (CLI) | payer OTHER | LOC: M PAIN 11:00 | DX: M47.27 Other spondylosis with radiculopathy, lumbosacral region (principal); F31.9 Bipolar disorder, unspecified; G43.909 Migraine, unspecified, not intractable, without status migrainosus; J45.909 Unspecified asthma, uncomplicated; F90.9 Attention-deficit hyperactivity disorder, unspecified type; K21.9 Gastro-esophageal reflux disease without esophagitis; F17.210 Nicotine dependence, cigarettes, uncomplicated; Z79.899 Other long term (current) drug therapy; Z88.8 Allergy status to other drugs, medicaments and biological substances; Z91.040 Latex allergy status; Z91.030 Bee allergy status; Z91.018 Allergy to other foods | CPT/HCPCS: G0463 ==

== ENCOUNTER 2018-03-16 15:54 | Emergency (ER) | payer OTHER | END 2018-03-16 16:42 | disposition home or self-care (01) | LOC: M ED 15:54 | DX: K14.6 Glossodynia (principal); K91.89 Other postprocedural complications and disorders of digestive system; K21.9 Gastro-esophageal reflux disease without esophagitis; Z72.0 Tobacco use; Z79.899 Other long term (current) drug therapy; Z91.030 Bee allergy status; Z88.8 Allergy status to other drugs, medicaments and biological substances; Z91.040 Latex allergy status | CPT/HCPCS: 99282 ==

== ENCOUNTER 2018-03-24 11:50 | Emergency (ER) | payer OTHER ==
[2018-03-24 12:28] LABS: CONTROL LINE UCG INT CTR LINE PRESENT; URINE PREG TEST NEGATIVE (NEGATIVE)
[2018-03-24 12:31] LABS: AMORPHOUS SEDIMENT RFX SMALL (NEGATIVE); KETONE, URINE AUTO RFX NEGATIVE (NEGATIVE); MUCUS, URINE RFX LARGE (NEGATIVE); NITRITE, URINE AUTO RFX NEGATIVE (NEGATIVE); RBC, URINE AUTO RFX TNTC /HPF (0-3); SPECIFIC GRAVITY UR AUTO RFX 1.025 (1.002-1.035); SQUAM EPITHELIAL CELL UR AURFX 6 /HPF (0-6)
[2018-03-24 12:32] LABS: LEUKOCYTE ESTERASE UR AUTO RFX 2+ (NEGATIVE); WBC, URINE AUTO RFX TNTC /HPF (0-3)
== END 2018-03-24 12:47 | disposition home or self-care (01) ==
LOC: M ED 11:50
DX: N30.00 Acute cystitis without hematuria (principal); Z72.0 Tobacco use; Z79.899 Other long term (current) drug therapy; Z91.013 Allergy to seafood; Z91.040 Latex allergy status; Z88.8 Allergy status to other drugs, medicaments and biological substances
CPT/HCPCS: 84703

== ENCOUNTER 2018-04-14 18:49 | Emergency (ER) | payer OTHER ==
[2018-04-14] MEDS: ALBUTEROL SULFATE 2.5 MG/0.5 ML INH NEB SOLN INH (21:41)
[2018-04-14] MEDS: KETOROLAC 30 MG/ML VIAL (J1885) IV (22:30)
[2018-04-14] MEDS: predniSONE 20 MG TAB PO (22:30)
[2018-04-14] MEDS: AZITHROMYCIN 250 MG TAB PO (22:30)
== END 2018-04-14 23:30 | disposition home or self-care (01) ==
LOC: M ED 18:49
DX: J45.909 Unspecified asthma, uncomplicated (principal)
CPT/HCPCS: J1885

== ENCOUNTER → 2018-05-16 | Outpatient (CLI) | payer OTHER | LOC: M PAIN 14:00 | DX: M47.816 Spondylosis without myelopathy or radiculopathy, lumbar region (principal); M47.817 Spondylosis without myelopathy or radiculopathy, lumbosacral region; F31.9 Bipolar disorder, unspecified; G43.909 Migraine, unspecified, not intractable, without status migrainosus; J45.909 Unspecified asthma, uncomplicated; K21.9 Gastro-esophageal reflux disease without esophagitis; F17.210 Nicotine dependence, cigarettes, uncomplicated; Z79.899 Other long term (current) drug therapy; Z88.8 Allergy status to other drugs, medicaments and biological substances; Z91.040 Latex allergy status; Z91.030 Bee allergy status; Z91.018 Allergy to other foods | CPT/HCPCS: Q9967 ==

== ENCOUNTER → 2018-05-30 | Outpatient (CLI) | payer OTHER | LOC: M PAIN 13:45 | DX: M47.27 Other spondylosis with radiculopathy, lumbosacral region (principal); G43.909 Migraine, unspecified, not intractable, without status migrainosus; J45.909 Unspecified asthma, uncomplicated; F31.9 Bipolar disorder, unspecified; F17.210 Nicotine dependence, cigarettes, uncomplicated; Z79.899 Other long term (current) drug therapy; Z88.8 Allergy status to other drugs, medicaments and biological substances; Z91.030 Bee allergy status; Z91.040 Latex allergy status; Z91.018 Allergy to other foods; Z87.820 Personal history of traumatic brain injury | CPT/HCPCS: G0463 ==

== ENCOUNTER → 2018-06-25 | Outpatient (CLI) | payer OTHER ==
[~2018-06-25] MED LIST changes: -ISOVUE-M 300 61% 15ML VIAL (Q9967) As Ordered; +TRIAMCINOLONE ACETONIDE SUSP 40 MG/ML VIAL (J3301) As Ordered
== END ==
LOC: M PAIN 14:00
DX: M47.816 Spondylosis without myelopathy or radiculopathy, lumbar region (principal); M47.817 Spondylosis without myelopathy or radiculopathy, lumbosacral region; F31.9 Bipolar disorder, unspecified; G43.909 Migraine, unspecified, not intractable, without status migrainosus; J45.909 Unspecified asthma, uncomplicated; F90.9 Attention-deficit hyperactivity disorder, unspecified type; K21.9 Gastro-esophageal reflux disease without esophagitis; F17.210 Nicotine dependence, cigarettes, uncomplicated; Z91.410 Personal history of adult physical and sexual abuse; Z91.040 Latex allergy status; Z91.030 Bee allergy status; Z91.018 Allergy to other foods; Z88.8 Allergy status to other drugs, medicaments and biological substances; Z79.899 Other long term (current) drug therapy
CPT/HCPCS: J3301

== ENCOUNTER → 2018-07-09 | Outpatient (CLI) | payer OTHER | LOC: M PAIN 14:30 | DX: M47.27 Other spondylosis with radiculopathy, lumbosacral region (principal); J45.909 Unspecified asthma, uncomplicated; G43.909 Migraine, unspecified, not intractable, without status migrainosus; F31.9 Bipolar disorder, unspecified; F17.210 Nicotine dependence, cigarettes, uncomplicated; Z88.6 Allergy status to analgesic agent; Z88.8 Allergy status to other drugs, medicaments and biological substances; Z91.040 Latex allergy status; Z91.030 Bee allergy status; Z91.018 Allergy to other foods; Z87.820 Personal history of traumatic brain injury | CPT/HCPCS: G0463 ==

== ENCOUNTER 2018-08-12 12:06 | Emergency (ER) | payer OTHER ==
[~2018-08-12] VITALS: Ht 165.1 cm; Wt 60.9 kg
[2018-08-12 12:06] VITALS: BP 118/73
[~2018-08-12 12:06] MED LIST changes: +ALBU17IN INH; +ANTA500C PO; +ASMA220A5 IN; +AZIT500T2 PO; +BACT800T5 PO; -BUPIVACAINE HCL 0.25% 30 ML VIAL As Ordered; +BUTA1CAP4 PO; +CENTTAB36 PO; +CLAR10CA3 PO; +CLOT1CRE; +CYCL10TA PO; +FLON1SPR; +IBUP-1114 PO; +IBUP80TA PO; +KEFL500C17 PO; +LATU20TA PO; -LIDOCAINE 1% SDV INJ 30 ML VIAL As Ordered; +LITH300C PO; +MAPA500T2 PO; +METH1TAB40 PO; +MUCI600T37 PO; +MULTCHW14 PO; +NAPR-50 PO; +PRED20TA PO; +PRENTAB9 PO; +RANI150T; +SUDA1TAB3 PO; -TRIAMCINOLONE ACETONIDE SUSP 40 MG/ML VIAL (J3301) As Ordered; +VALT500T PO
[2018-08-12] MEDS ORDERED: RANI-280 PO (12:16)
--- NOTE | 2018-08-12 12:45 | REP ---
Clinical: Productive cough . Comparison: 04/14/2018 . Technique: PA and lateral. Findings: The mediastinum and cardiac silhouette are normal. The lung sams are clear and without acute consolidation, effusion, or pneumothorax. The skeletal structures are intact and normal. Impression: 1. No acute cardiopulmonary process. Electronically Signed by Antonio Galeano MD 08/12/2018 12:37 P
[2018-08-12] MEDS ORDERED: PROAAER10 INH (12:59)
[2018-08-12] MEDS ORDERED: TESS100C PO (13:00)
[2018-08-12] MEDS ORDERED: PRED10TA2 PO (13:00)
== END 2018-08-12 13:05 | disposition home or self-care (01) ==
LOC: M ED 12:09
DX: J06.9 Acute upper respiratory infection, unspecified (principal); E11.9 Type 2 diabetes mellitus without complications; J45.909 Unspecified asthma, uncomplicated; K21.9 Gastro-esophageal reflux disease without esophagitis; F33.9 Major depressive disorder, recurrent, unspecified; F41.9 Anxiety disorder, unspecified; F90.9 Attention-deficit hyperactivity disorder, unspecified type; F42.9 Obsessive-compulsive disorder, unspecified; M19.90 Unspecified osteoarthritis, unspecified site; R56.9 Unspecified convulsions; Z79.899 Other long term (current) drug therapy; Z88.8 Allergy status to other drugs, medicaments and biological substances; Z91.030 Bee allergy status; Z91.040 Latex allergy status; Z87.891 Personal history of nicotine dependence

== ENCOUNTER → 2018-08-30 | Outpatient (CLI) | payer OTHER ==
[~2018-08-30] MED LIST changes: +PRED10TA2 PO; +PROAAER10 INH; +RANI-280 PO; +TESS100C PO
[2018-08-30 15:42] LABS: ALBUMIN 4.4 GM/DL (3.2-5.2); BLOOD UREA NITROGEN 8 MG/DL (7-18); CARBON DIOXIDE LEVEL 25 MEQ/L (21-32); CHLORIDE LEVEL 108 MEQ/L (98-107); CHOLESTEROL LEVEL 173 MG/DL (<200); CHOLESTEROL RISK RATIO 2.883 (<5); CREATININE FOR GFR 0.75 MG/DL (0.55-1.30); GLOMERULAR FILTRATION RATE > 60.0 (>60); GLUCOSE, FASTING 68 MG/DL (70-100); HDL CHOLESTEROL 60 MG/DL (>40); LDL CHOLESTEROL 102 MG/DL (<100); LITHIUM LEVEL 0.41 MEQ/L (0.60-1.20); NON-HDL-C 113 MG/DL; PHOSPHORUS LEVEL 3.4 MG/DL (2.5-4.9); POTASSIUM SERUM 3.9 MEQ/L (3.5-5.1); SODIUM LEVEL 141 MEQ/L (136-145); TRIGLYCERIDES LEVEL 56 MG/DL (<150)
== END ==
LOC: M LAB 13:47
PROVIDERS: ATTEND Nurse Practitioner Psychiatric/Mental Health
DX: Z79.899 Other long term (current) drug therapy (principal)

== ENCOUNTER → 2018-09-16 | Outpatient (CLI) | payer OTHER ==
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
== END ==
LOC: M PAIN 10:45
PROVIDERS: ATTEND Nurse Practitioner Family
DX: M47.27 Other spondylosis with radiculopathy, lumbosacral region (principal); F31.9 Bipolar disorder, unspecified; G43.909 Migraine, unspecified, not intractable, without status migrainosus; J45.909 Unspecified asthma, uncomplicated; K21.9 Gastro-esophageal reflux disease without esophagitis; F90.9 Attention-deficit hyperactivity disorder, unspecified type; F17.210 Nicotine dependence, cigarettes, uncomplicated; Z91.040 Latex allergy status; Z88.8 Allergy status to other drugs, medicaments and biological substances; Z91.018 Allergy to other foods; Z79.899 Other long term (current) drug therapy

== ENCOUNTER 2018-11-09 15:44 | Emergency (ER) | payer OTHER ==
[~2018-11-09] VITALS: Ht 165.1 cm; Wt 62.3 kg
[~2018-11-09 15:44] MED LIST changes: -ANTA500C PO; +CALC1CHW3 PO; -NAPR-50 PO; +NAPR-837 PO
[2018-11-09 16:50] LABS: INFLUENZA A AMPLIFICATION POSITIVE (NEGATIVE); INFLUENZA B AMPLIFICATION NEGATIVE (NEGATIVE)
[2018-11-09] MEDS ORDERED: ONDANSETRON 4 MG ORAL DISINTEGRATING TAB (Q0162 PER 1MG) PO ONE (17:00)
[2018-11-09] MEDS ORDERED: AUGMENTIN 875 MG TAB PO ONE (17:00)
[2018-11-09] MEDS ORDERED: OSELTAMIVIR PHOSPHATE 75 MG CAP (TAMIFLU) PO ONE (17:00)
[2018-11-09] MEDS ORDERED: ZOFR4TAB16 PO (17:08)
[2018-11-09] MEDS ORDERED: OSEL75CA PO (17:08)
[2018-11-09] MEDS ORDERED: AUGM875T28 PO (17:08)
[2018-11-09] MEDS ORDERED: KETOROLAC 60 MG/2 ML VIAL (J1885) IM ONE (17:15)
[2018-11-09 17:36] VITALS: BP 128/67
== END 2018-11-09 18:14 | disposition home or self-care (01) ==
LOC: M ED 15:44 → EDBD 15:44 → M ED 18:14
DX: J09.X2 Influenza due to identified novel influenza A virus with other respiratory manifestations (principal); F17.210 Nicotine dependence, cigarettes, uncomplicated
CPT/HCPCS: 87502; 87880; 96372; 99284; J1885; Q0162

== ENCOUNTER 2018-12-05 13:04 | Emergency (ER) | payer OTHER ==
[~2018-12-05] VITALS: Ht 165.1 cm; Wt 62.1 kg
[~2018-12-05 13:04] MED LIST changes: +AUGM875T28 PO; +OSEL75CA PO; +ZOFR4TAB16 PO
[2018-12-05 14:29] LABS: BASO % 0.3 % (0.0-1.0); EOS # 0.1 10^3/uL (0.0-0.50); EOS % 1.3 % (0.0-3.0); HEMATOCRIT 39.4 % (36.0-47.0); HEMOGLOBIN 12.7 g/dl (12.0-15.5); LYMPH # 1.1 10^3/uL (1.5-4.5); LYMPH % 27.3 % (24.0-44.0); MEAN CORPUSCULAR HGB CONC 32.2 g/dl (32.0-36.5); MEAN CORPUSCULAR VOLUME 92.9 fl (80.0-96.0); MONO # 0.8 10^3/uL (0.0-0.8); MONO % 18.8 % (0.0-5.0); NEUTROPHILS # 2.1 10^3/uL (1.8-7.7); PLATELET COUNT, AUTOMATED 295 10^3/uL (150-450); RED BLOOD COUNT 4.24 10^6/uL (4.00-5.40)
[2018-12-05 14:59] LABS: ALBUMIN 4.1 GM/DL (3.2-5.2); ALT/SGPT 16 U/L (12-78); AMYLASE 47 U/L (25-115); BILIRUBIN,DIRECT < 0.1 MG/DL (0.0-0.2); BILIRUBIN,TOTAL 0.3 MG/DL (0.2-1.0); BLOOD UREA NITROGEN 8 MG/DL (7-18); CALCIUM LEVEL 8.6 MG/DL (8.5-10.1); CARBON DIOXIDE LEVEL 25 MEQ/L (21-32); CHLORIDE LEVEL 107 MEQ/L (98-107); CREATININE FOR GFR 0.73 MG/DL (0.55-1.30); GLOMERULAR FILTRATION RATE > 60.0 (>60); GLUCOSE, FASTING 76 MG/DL (70-100); LIPASE 96 U/L (73-393); POTASSIUM SERUM 4.1 MEQ/L (3.5-5.1); SODIUM LEVEL 139 MEQ/L (136-145); TOTAL PROTEIN 7.6 GM/DL (6.4-8.2)
--- NOTE | 2018-12-05 15:41 | REP ---
Pelvic sonography: History: Pain. History of ovarian cyst. Findings: Transabdominal and transvaginal scanning are performed. The uterus is retroverted normal in size measuring 8.3 x 4.3 x 6.3 cm. Endometrial echo is 1.2 cm thick and centrally placed. A normal right ovary seen measuring 3.7 x 1.8 x 1.8 cm. A 1.3 cm follicle is seen in the right ovary. Doppler flow is normal in the right ovary with resistive index 0.35. A normal left ovary seen measuring 2.9 x 2.5 x 3.1 cm. Its Doppler flow has normal resistive index 0.52. There is a 2.1 x 1.6 x 1.8 cm follicle in the left ovary. Impression: Normal pelvic sonography. Electronically Signed by Anand Blake MD 12/05/2018 04:25 P
[2018-12-05] MEDS ORDERED: FLAG500T PO (15:53)
[2018-12-05 16:05] VITALS: BP 130/62
[2018-12-05 16:14] LABS: CHLAMYDIA DNA AMPLIFICATION NEGATIVE (NEGATIVE); GC DNA AMPLIFICATION NEGATIVE (NEGATIVE)
== END 2018-12-05 16:07 | disposition home or self-care (01) ==
LOC: M ED 13:04
DX: N76.0 Acute vaginitis (principal); E11.9 Type 2 diabetes mellitus without complications; J45.909 Unspecified asthma, uncomplicated; Z87.42 Personal history of other diseases of the female genital tract; R51 Headache; K21.9 Gastro-esophageal reflux disease without esophagitis; F44.5 Conversion disorder with seizures or convulsions; M19.90 Unspecified osteoarthritis, unspecified site; F41.9 Anxiety disorder, unspecified; F90.9 Attention-deficit hyperactivity disorder, unspecified type; F31.9 Bipolar disorder, unspecified; F42.9 Obsessive-compulsive disorder, unspecified; F84.5 Asperger's syndrome; F95.2 Tourette's disorder; Z91.040 Latex allergy status; Z91.030 Bee allergy status; Z79.899 Other long term (current) drug therapy

== ENCOUNTER 2019-01-09 16:32 | Emergency (ER) | payer OTHER ==
[~2019-01-09] VITALS: Ht 165.1 cm; Wt 62.3 kg
[~2019-01-09 16:32] MED LIST changes: +FLAG500T PO
--- NOTE | 2019-01-09 17:05 | REP ---
Clinical: Trauma. Technique: AP, lateral, bilateral oblique views. Findings: The carpal bones, surrounding osseous structures, soft tissues, and joint spaces are normal. There is no evidence for acute fracture or dislocation. No subcutaneous emphysema or radiodense foreign body. Old unfused fracture of the ulnar styloid is suggested. Impression: No acute fracture or dislocation Electronically Signed by Antonio Galeano MD 01/09/2019 04:57 P
--- NOTE | 2019-01-09 17:06 | REP ---
Clinical: Trauma. Technique: AP, lateral, bilateral oblique views right hand . Findings: The osseous structures and joint spaces are intact and normal. There is no evidence for acute fracture or dislocation. Old unfused ulnar styloid fracture noted. Surrounding soft tissues are unremarkable. No subcutaneous emphysema or radiodense foreign body. Impression: No acute fracture or dislocation. Electronically Signed by Antonio Galeano MD 01/09/2019 04:58 P
[2019-01-09] MEDS ORDERED: IBUP-1022 PO (19:16)
[2019-01-09 19:19] VITALS: BP 111/57
== END 2019-01-09 19:25 | disposition home or self-care (01) ==
LOC: M ED 16:32
DX: S63.501A Unspecified sprain of right wrist, initial encounter (principal); S60.221A Contusion of right hand, initial encounter; W01.198A Fall on same level from slipping, tripping and stumbling with subsequent striking against other object, initial encounter; Y92.098 Other place in other non-institutional residence as the place of occurrence of the external cause; F44.5 Conversion disorder with seizures or convulsions; F17.210 Nicotine dependence, cigarettes, uncomplicated; Z88.5 Allergy status to narcotic agent; Z91.040 Latex allergy status; Z91.030 Bee allergy status; Z79.899 Other long term (current) drug therapy

== ENCOUNTER 2019-07-04 11:28 | Emergency (ER) | payer OTHER ==
[~2019-07-04] VITALS: Ht 165.1 cm; Wt 59.8 kg
[~2019-07-04 11:28] MED LIST changes: -AZIT500T2 PO; +AZIT500T5 PO; +IBUP-1022 PO
[2019-07-04] MEDS ORDERED: ACET1TAB55 (16:09)
[2019-07-04] MEDS ORDERED: LATU1TAB (16:09)
[2019-07-04] MEDS ORDERED: IPRA6SP (16:09)
[2019-07-04 16:43] LABS: INFLUENZA A AMPLIFICATION NEGATIVE (NEGATIVE); INFLUENZA B AMPLIFICATION NEGATIVE (NEGATIVE)
[2019-07-04] MEDS ORDERED: MUCI600T31 PO (17:07)
[2019-07-04] MEDS ORDERED: IBUP-1022 PO (17:07)
[2019-07-04 17:14] VITALS: BP 110/62
== END 2019-07-04 17:21 | disposition home or self-care (01) ==
LOC: M ED 11:28
DX: J20.9 Acute bronchitis, unspecified (principal); B34.9 Viral infection, unspecified; F17.200 Nicotine dependence, unspecified, uncomplicated; F44.5 Conversion disorder with seizures or convulsions; R51 Headache; J45.909 Unspecified asthma, uncomplicated; K21.9 Gastro-esophageal reflux disease without esophagitis; Z87.440 Personal history of urinary (tract) infections; Z87.42 Personal history of other diseases of the female genital tract; R73.03 Prediabetes; M19.90 Unspecified osteoarthritis, unspecified site; M54.9 Dorsalgia, unspecified; F41.9 Anxiety disorder, unspecified; F31.89 Other bipolar disorder; F90.9 Attention-deficit hyperactivity disorder, unspecified type; F42.9 Obsessive-compulsive disorder, unspecified; F84.5 Asperger's syndrome; F95.2 Tourette's disorder; Z79.899 Other long term (current) drug therapy; Z91.030 Bee allergy status; Z88.8 Allergy status to other drugs, medicaments and biological substances

== ENCOUNTER 2019-09-30 10:26 | Emergency (ER) | payer OTHER ==
[~2019-09-30 10:26] MED LIST changes: +ACET1TAB55; +IPRA6SP; +LATU1TAB; +MUCI600T31 PO
[2019-09-30 11:42] LABS: INFLUENZA A AMPLIFICATION NEGATIVE (NEGATIVE); INFLUENZA B AMPLIFICATION POSITIVE (NEGATIVE)
--- NOTE | 2019-09-30 11:46 | REP ---
Clinical: Cough and fever. Bronchitis. . Comparison: 08/12/2018 . Technique: PA and lateral. Findings: The mediastinum and cardiac silhouette are normal. The lung sams are clear and without acute consolidation, effusion, or pneumothorax. The skeletal structures are intact and normal. Impression: 1. No focal consolidation. Electronically Signed by Antonio Galeano MD 09/30/2019 11:37 A
[2019-09-30] MEDS ORDERED: ACETAMINOPHEN 325 MG TAB PO ONE (12:00)
[2019-09-30] MEDS ORDERED: IBUPROFEN 800 MG TAB PO ONE (12:15)
[2019-09-30 12:45] VITALS: BP 128/59
[2019-09-30] MEDS ORDERED: ACET1TAB55 PO (13:02)
[2019-09-30] MEDS ORDERED: IBUP-1022 PO (13:02)
== END 2019-09-30 13:00 | disposition home or self-care (01) ==
LOC: M ED 10:26 → EDBD 10:26 → M ED 13:00
DX: J10.1 Influenza due to other identified influenza virus with other respiratory manifestations (principal); R05 Cough; R50.9 Fever, unspecified; F17.200 Nicotine dependence, unspecified, uncomplicated; Z79.899 Other long term (current) drug therapy; Z88.8 Allergy status to other drugs, medicaments and biological substances; Z91.030 Bee allergy status; Z91.040 Latex allergy status

== ENCOUNTER → 2019-11-25 | Outpatient (REF) | payer OTHER ==
[~2019-11-25] MED LIST changes: +ACET1TAB55 PO; +CYCL-707 PO; -CYCL10TA PO
[2019-11-25 13:16] LABS: BASO % 0.2 % (0.0-1.0); EOS # 0.1 10^3/uL (0.0-0.5); EOS % 1.9 % (0.0-3.0); HEMATOCRIT 42.7 % (36.0-47.0); HEMOGLOBIN 13.7 g/dl (12.0-15.5); LYMPH % 33.7 % (24.0-44.0); MEAN CORPUSCULAR HEMOGLOBIN 29.8 pg (27.0-33.0); MEAN CORPUSCULAR HGB CONC 32.1 g/dl (32.0-36.5); MEAN CORPUSCULAR VOLUME 92.8 fl (80.0-96.0); MONO # 0.6 10^3/uL (0.0-0.8); MONO % 10.2 % (0.0-5.0); NEUTROPHILS # 3.2 10^3/uL (1.5-8.5); NEUTROPHILS % 53.7 % (36.0-66.0); PLATELET COUNT, AUTOMATED 354 10^3/uL (150-450); WHITE BLOOD COUNT 5.9 10^3/uL (4.0-10.0)
[2019-11-25 13:25] LABS: ALBUMIN 4.2 GM/DL (3.2-5.2); ALT/SGPT 14 U/L (12-78); BILIRUBIN,TOTAL 0.3 MG/DL (0.2-1.0); BLOOD UREA NITROGEN 10 MG/DL (7-18); CALCIUM LEVEL 9.2 MG/DL (8.5-10.1); CARBON DIOXIDE LEVEL 27 MEQ/L (21-32); CHLORIDE LEVEL 106 MEQ/L (98-107); CHOLESTEROL LEVEL 168 MG/DL (<200); CHOLESTEROL RISK RATIO 3.906 (<5); CREATININE FOR GFR 0.85 MG/DL (0.55-1.30); FOLATE 7.6 NG/ML; FREE T4 0.92 NG/DL (0.76-1.46); GLOMERULAR FILTRATION RATE > 60.0 (>60); GLUCOSE, FASTING 92 MG/DL (70-100); HDL CHOLESTEROL 43 MG/DL (>40); LDL CHOLESTEROL 109 MG/DL (<100); NON-HDL-C 125 MG/DL; POTASSIUM SERUM 3.9 MEQ/L (3.5-5.1); SODIUM LEVEL 138 MEQ/L (136-145); TOTAL PROTEIN 7.8 GM/DL (6.4-8.2); TRIGLYCERIDES LEVEL 81 MG/DL (<150); VITAMIN B12 LEVEL 341 PG/ML
[2019-11-25 13:29] LABS: TOTAL 25(OH) VITAMIN D 25.4 NG/ML (30.0-100.0)
[2019-11-25 13:39] LABS: HEMOGLOBIN A1c 4.9 %
== END ==
LOC: M LAB REF 12:05
PROVIDERS: ATTEND Nurse Practitioner Family
DX: R63.4 Abnormal weight loss (principal); Z13.9 Encounter for screening, unspecified; M54.5 Low back pain; Z87.42 Personal history of other diseases of the female genital tract; J06.9 Acute upper respiratory infection, unspecified; F90.0 Attention-deficit hyperactivity disorder, predominantly inattentive type; G43.909 Migraine, unspecified, not intractable, without status migrainosus

== ENCOUNTER → 2020-03-31 | Outpatient (REF) | payer OTHER, MEDICAID ==
[~2020-03-31] MED LIST changes: -CLOT1CRE; +CLOT1CRE51
[2020-03-31 19:57] LABS: EOS # 0.1 10^3/uL (0.0-0.5); EOS % 0.9 % (0.0-3.0); HEMATOCRIT 42.8 % (36.0-47.0); HEMOGLOBIN 13.7 g/dl (12.0-15.5); LYMPH # 1.3 10^3/uL (1.5-5.0); LYMPH % 22.4 % (24.0-44.0); MEAN CORPUSCULAR HEMOGLOBIN 29.8 pg (27.0-33.0); MEAN CORPUSCULAR VOLUME 93.2 fl (80.0-96.0); MONO # 0.7 10^3/uL (0.0-0.8); MONO % 11.9 % (0.0-5.0); NEUTROPHILS # 3.6 10^3/uL (1.5-8.5); NEUTROPHILS % 64.1 % (36.0-66.0); PLATELET COUNT, AUTOMATED 351 10^3/uL (150-450); RED BLOOD COUNT 4.59 10^6/uL (4.00-5.40); WHITE BLOOD COUNT 5.6 10^3/uL (4.0-10.0)
[2020-03-31 20:27] LABS: ALBUMIN 3.9 GM/DL (3.2-5.2); ALT/SGPT 16 U/L (12-78); BILIRUBIN,TOTAL 0.4 MG/DL (0.2-1.0); BLOOD UREA NITROGEN 12 MG/DL (7-18); CALCIUM LEVEL 9.3 MG/DL (8.5-10.1); CARBON DIOXIDE LEVEL 28 MEQ/L (21-32); CHLORIDE LEVEL 106 MEQ/L (98-107); CHOLESTEROL LEVEL 164 MG/DL (<200); CHOLESTEROL RISK RATIO 3.565 (<5); FREE T4 0.93 NG/DL (0.76-1.46); GLOMERULAR FILTRATION RATE > 60.0 (>60); GLUCOSE, FASTING 88 MG/DL (70-100); HDL CHOLESTEROL 46 MG/DL (>40); LDL CHOLESTEROL 105 MG/DL (<100); NON-HDL-C 118 MG/DL; POTASSIUM SERUM 3.9 MEQ/L (3.5-5.1); SODIUM LEVEL 139 MEQ/L (136-145); TOTAL PROTEIN 7.4 GM/DL (6.4-8.2); TRIGLYCERIDES LEVEL 63 MG/DL (<150)
== END ==
LOC: M LAB REF 16:52
PROVIDERS: ATTEND Nurse Practitioner Family
DX: E02 Subclinical iodine-deficiency hypothyroidism (principal); Z13.9 Encounter for screening, unspecified; R63.4 Abnormal weight loss; M54.5 Low back pain

== ENCOUNTER → 2020-07-02 | Outpatient (REF) | payer OTHER, MEDICAID | LOC: M LAB REF 12:08 | PROVIDERS: ATTEND Nurse Practitioner Family | DX: Z12.4 Encounter for screening for malignant neoplasm of cervix (principal) ==

== ENCOUNTER 2020-09-29 11:40 | Emergency (ER) | payer MEDICAID, OTHER ==
[~2020-09-29] VITALS: Ht 165.1 cm; Wt 58.6 kg
[~2020-09-29 11:40] MED LIST changes: -LATU1TAB; +LATU1TAB PO; +METH-1164 PO; -METH1TAB40 PO
[2020-09-29 11:41] VITALS: BP 121/70
--- OUTSIDE RECORDS SUMMARY | 2020-09-29 11:49 | CCD ---
Author Organization Unknown Address [address] [place] [address] Phone [phone] Care Team Providers Care [employer] Name Role Phone Kacy Bro Unavailable Unavailable Allergies Code Code System Name Reaction Severity Status Onset 4560008 RxNorm Latex Active 12/02/2019 Toradol Nausea Mild to Moderate Active Vomiting Mild Active Notes: PLASTIC TAPE - Reaction: rash | SEASONAL - Reaction: stuffiness | BEE STINGS | BLEACH - Reaction: sob Medications Name Status Start Date Stop Date acetaminophen 325 mg tablet Active Not available albuterol sulfate HFA 90 mcg/actuation aerosol inhaler Active Not available azithromycin 250 mg tablet Completed 07/01 Banophen 50 mg capsule Active Not avail able benzonatate 100 mg capsule Completed 07/01 duloxetine 30 mg capsule,delayed release TAKE ONE CAPSULE BY MOUTH ONCE DAILY Active No t available ibuprofen 600 mg tablet Active Not avai lable ipratropium bromide 42 mcg (0.06 %) nasal spray Completed 07/01/2020 ketotifen 0.025 % (0.035 %) eye drops Active Not available Latuda 60 mg tablet Completed 07/01/2020 Latuda 80 mg tablet Active Not availabl e lithium carbonate 300 mg capsule Active Not available lithium citrate 8 mEq/5 mL (5 mL) oral solution Completed 07/01/2020 Mucus Relief ER 600 mg tablet, extended release Completed 07/01/2020 paroxetine 10 mg tablet Completed 07/01/20 20 paroxetine 30 mg tablet Completed 07/01/20 20 sumatriptan 25 mg tablet Take 1 tablet every day by oral route as needed. take one tablet by mouth on onset of headache, if not effective may repeat x 1 tablet in 2 hours. . MDD 2 Active Not availabl e Problems Name Status Onset Date Source Bipolar Disorder Active 06/28/2012 History Migraine Active 06/28/2012 History Tobacco Use and Exposure - Finding Active 06/28/2012 History Viral Infection by Site Active 06/28/2012 History Primary Amenorrhea Active 06/28/[address] Concept Active 06/28/2012 History Finding of Esophagus Active 07/01/2012 History Inflammation of Cervix Active 07/31/2012 History Attention Deficit Hyperactivity Disorder, Predominantly Inat tentive Type Active 07/31/2012 History Breast Neoplasm Screening Status Active 07/31/2012 History Chronic Obstructive Lung Disease Active 08/26/2012 History Evaluation Finding Active 09/10/2012 History Abdominal Active 04/18/[address] Concept Active 04/18/2013 History Lumbar Sprain Active 05/14/2013 History Sprain Pelvic Ligament Active 05/14/2013 History Allergic Rhinitis Active 06/17/2013 History Noninflammatory Disorder of Vulva Active 06/17/2013 History Strain of Tendon of Upper Arm Active 06/17/2013 Hi story Strain of Muscle of Upper Limb Active 06/17/2013 H istory Disorder of Upper Respiratory System Active 06/30/2019 History Acute Bronchitis Active 07/23/2019 History Exposure to Second Hand Tobacco Smoke Active 07/23/2019 History Low Back Pain Active 10/23/2019 History Abnormal Weight Loss Active 10/23/2019 History Clinical Finding Active 10/23/2019 History Subclinical Iodine Deficiency Hypothyroidism Active History Patient Asked to Attend Active 12/02/2019 History Depressive Disorder Active History Asthma Active History SNOMED CT Concept Active History Procedures Date Name Performed by Tubal Ligation Information not avai lable Notes: tubal ligation Results Lab Results None recorded. Past Encounters 07/01/2020 Screening for Malignant Neoplasm of Cervix; Migraine Kacy Bro, [facility]: [address] [place] [address], Ph. Social History Tobacco Smoking Status Heavy Tobacco Smoker (1/2 PPD) Vaccine List Notes: Pt refused Flu vaccine Plan of Care Patient Instructions pap smear with hpv test done today. if r esult concerning, we will contact you. Reminders Provider Appointments None recorded. Lab None recorded. Referral None recorded. Procedures None recorded. Surgeries None recorded. Imaging None recorded. Vitals 07/01/2020 02:40PM PAP SMEAR Height Weight BMI Blood Pressure 64 in 126 lbs 2 oz 21.6 kg/m2 112/75 mm[Hg] 12/02/2019 Height 64 in 10/23/2019 Height Weight Blood Pressure 64 in 128 lbs 2.08 oz 106/68 mm[Hg] 07/23/2019 Height Weight Blood Pressure 64 in 132 lbs 99/70 mm[Hg] 06/30/2019 Height Weight Blood Pressure 64 in 134 lbs 104/75 mm[Hg]"
--- OUTSIDE RECORDS SUMMARY | 2020-09-29 11:50 | CCD ---
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 Supporting Document(s) ID Date Data Source [id number] 03/31/2020 01:42:50 PM EDT [facility] Labs In-House Blood TestsDate/Time Colle cted: March 31, 2020 12:43 PMTest Result Reference Range Normal ValueComments: taken from left ac, tolerated well.Maddy Garner, March 31, 2020 1:43 PMAssessment & Plan Orders:[id number] Vst-Est Level I [CPT-32975] 66104 - Venipuncture [CPT-37317] Name Value Range Interpretation Code Description Data Kelly rce(s) Supporting Document(s) ID Date Data Source [id number] 03/31/2020 12:43:00 PM EDT [facility] Name Value Range Interpretation Code Description Data Kelly rce(s) Supporting Document(s) BG FASTING 88 mg/dL 70-100 N [facility] T4, FREE 0.93 ng/dL 0.76-1.46 N [facility] TSH 1.690 microintl units/mL 0.358-3.740 [facility] ID Date Data Source [id number] 03/31/2020 12:43:00 PM EDT [facility] Name Value Range Interpretation Code Description Data Kelly rce(s) Supporting Document(s) HCT 42.8 % 36.0-47.0 [facility] HGB 13.7 g/dL 12.0-15.5 [facility] MCH 32.0 G/DL pg 32.0-36.5 N [facility] MCHC 29.8 PG % 27.0-33.0 [facility] PLATELETS 351 10 10*3/mm3 150-450 N [facility] RBC 4.59 10 10*6/mm3 4.00-5.40 [facility] RDW 12.2 % 11.5-14.5 [facility] WBC TOTAL 5.6 4.0-10.0 [facility] ID Date Data Source [id number] 12/02/2019 04:31:55 PM EDT [facility] Measurements & CalculationsHeight: 64 inches (5 ft. 4 in.) 162.56 cm Initial Intake Information from: patientSmoking, Tobacco, Vaping or Smoke Exposure StatusSmoke Status: current every day smokerTobacco Use: YesAdv to Quit: YesDo you vape? NoPassive Smoke Exposure: YesMenstrual HistoryLast Menstrual Period (LMP): 11/27/2019Any possibility of ? NoComments: tubes tiedHealthcare HistorySince your last office visit...Have you been admitted to the hospital? NoHave you been to an emergency room (ER) or urgent care clinic? NoHave you seen another healthcare provider? NoHave you seen a dentist? NoIntake performed by: Serafin Hathaway MA, December 02, 2019 4:37 PMRate Your HealthIn general, would you say your health is? ExcellentPain AssessmentAre you currently having any pain which... You would like your provider to address? Yes Affects your activity level? YesDepression Screening - PHQ-2Over the last two weeks, have you... Had little interest or pleasure in doing things? Not at all Been feeling down, depressed, or hopeless? Not at all PHQ-2 Score: 0Anxiety Screening - ELVER-2Over the last two weeks, have you been... Feeling nervous, anxious, or on edge? Not at all Unable to stop or control worrying? Not at all ELVER-2 Score: 0Food InsecurityWithin the past year...Did you worry whether your food would run out before you got money to buy more? NoWas there a time when the food you bought didn't last and you didn't have money to get more? NoInfectious Disease / Travel ScreeningRecent travel for you or any close contacts? NoHave you had any close contact with anyone diagnosed with or under investigation for COVID-19 (coronavirus)? NoHave you had any of the following symptoms recently? Fever? NoRespiratory symptoms: cough, cold, congestion, shortness of breath, difficulty breathing? NoPain AssessmentPain ScaleNumeric Rating Scale: 4 / 10Location: backDuration: chronicFrequency: DailyCharacter/Quality: aching, burning, sharp, stabbing, throbbing, pressure and stinging. constantIs the pain radiating? NoScreening, Brief Intervention, & Referral to Treatment (SBIRT)Pre-Screening Questions How many times have you have 4 or more drinks in a day? 0How many times have you used an illegal drug or used a prescription medication for a non-medical reason? 0Performed by: Serafin Hathaway MA, December 02, 2019 4:38 PMPatient History Medical History:AsthmaAnxiety DisorderDepressionBipolar disorderADHDSurgical History:tubal ligationFamily History:Family History of AlcoholismFamily History of AnemiaFamily History of ArthritisFH of AnxietyFamily History of AsthmaFH DepressionFH DiabetesFH High CholesterolFH Lung/Respiratory DiseaseFH MigrainesFH StrokeFH Thyroid ProblemsFH HeadachesFH Psychiatric CareFH CaSocial/Personal History: Advised to Quit/Tobacco Education: YesChief Complaintlab results/ migrains phoneHistory of Present Illness (HPI)This visit was conducted via telephone. Kacy TERRY has received verbal consent from the patient/guardian to conduct this visit via telehealth. The patient has been made aware that they have the right to refuse telehealth; of my location and the security of the telehealth software; any other parties present in the session; and that they have a right to select another provider if chosen for a face to face visit.34 yr old female phone castro for lab results and migrains. Pt states she has chronic back pain that is a 4/10. Pt would like to discuss weight loss issues. Pt states has hard time loosing weight. Telephone call 22 minutes. HPI performed by: Kacy TERRY, December 02, 2019 6:07 PMProblem ReviewProblem List was reviewed and/or updated during this visit.Medication Reconciliation & ReviewMedication List was reviewed and/or updated during this visit, including review of any vfst-lyq-ptwhzgn medications, herbal therapies, and/or supplements.Allergy ReviewAllergy List was reviewed and/or updated during this visit.Adult Preventive CareProvider Calculated and Reviewed all Clinical Protocols for patient today. Screening Tobacco Screening: Smoking Status: current every day smoker (12/02/2019) Tobacco Use: Currently (12/02/2019) Advised to Quit: Yes (12/02/2019)Cancer Screening Pap Smear/HPV TestingReviewed: Previous Comments: would like to be seen here for Pap smear (10/23/2019)Today's Comments: PT would like to been in house Review of Systems General: Denies loss of appetite, chills, dizziness, fatigue, fever, continued fever, headache, feeling ill, sweats, night sweats, sleep disturbances, weight loss. Eyes: Denies blurring of vision, double vision, irritation, discharge, vision loss, eye pain, eye swelling, droopy eyelid, sensitivity to light, redness, itching. Ears/Nose/Throat: Denies earache, ear discharge, ringing in ears, decreased hearing, nasal congestion, nosebleeds, runny nose, sore throat, hoarseness, difficulty swallowing, dry mouth, tooth pain, bleeding gums, swollen glands. Cardiovascular: Denies chest pain, palpitations, feeling faint, trouble breathing w/exertion, SOB upon lying down, SOB at night, peripheral edema, elevated blood pressure, decreased heart rate. Respiratory: Denies cough, difficulty breathing, shortness of breath, excessive sputum, coughing up blood, wheezing, chest pain. Breast: Denies discoloration, tenderness, breast changes, breast lump, nipple discharge. Gastrointestinal: Denies nausea, vomiting, bleeding, burning, itching, irritation, cramps, diarrhea, constipation. Genitourinary: Denies urinary incontinence, pain with urination, burning with urination, urinary frequency, urinary hesitancy, urinary urgency, urinary urgency at night, incomplete emptying, blood in urine. Musculoskeletal: Complains of back pain, joint pain. Denies leg pain, other pain-see comments, joint swelling, body aches, muscle aches, muscle cramps, muscle weakness, stiffn ess, recent injury. Neurologic: Denies muscle impairment, weakness, numbness/tingling, seizures, slurred speech, feeling faint, tremors, vertigo, paralysis on one side, paralysis on both sides. Psychiatric: Denies depression, anxiety, memory loss, mental disturbance, suicidal ideation, homicidal ideation, hallucinations, paranoia, feeling stressed, hearing voices. Endocrine: Denies cold intolerance, heat intolerance, excessive thirst, excessive hunger, excessive urination, weight loss, weight gain. Physical ExamJudgment & Insight: intactRate Your HealthIn general, would you say your health is? ExcellentAssessment & Plan Problems:Added: Subclinical hypothyroidism (ICD- 244.8) (WFL11-J87) Assessment: will recheck TSH in 6-8 weeksPerson consulting for explanation of examination or test findings (ICD-V65.8) (SXQ21-R90.2) Assessment: Instructions: We have reviewed your lab results with you today.Person consulting for explanation of examination or test findings (ICD- V65.8) (YMW24-R10.2) Assessment: telephone call 22 minutesAssessed:MIGRAINE HEADACHE (ICD-346.90) (RTS72-I88.909) Assessment: per patient, Sumatriptan have been helping headache, pt states fewer headache days since she started Sumatriptan. Instructions: Please continue medications as prescribed. Please try to maintain adequate fluid intake. Please try to maintain adequate rest.Health Screening (ICD-V70.0) (JUH53-N58.9) Assessment: Instructions: lab results reviewed with you today.Health Screening (ICD-V70.0) (WFI02-S12.9) Assessment: Will recheck thyroid levels ordered, Pt concerned with difficulty lo ninigordy nesbittronnell.Patient Instructions/Care Plan: MIGRAINE HEADACHE: Please continue medications as prescribed. Please try to maintain adequate fluid intake. Please try to maintain adequate rest.Health Screening: lab results reviewed with you today.Person consulting for explanation of examination or test findings: We have reviewed your lab results with you today. Plan developed in collaboration with patient and/or familyMedications:PAROXETINE HCL 10 MG ORAL TABLETSUMATRIPTAN SUCCINATE 25 MG ORAL TABLETTYLENOL 325 MG ORAL TABLETLATUDA 80 MG ORAL TABLETMedication Changes:Added: PAROXETINE HCL 10 MG ORAL TABLET-1 tab PO dailyRemoved:LITHIUM CARBONATE 300 MG ORAL TABLETChanged:From: ORAL LATUDA 60 MG ORAL TABLET Qty: [id number] To: LATUDA 80 MG ORAL TABLET-1 tab PO dailyAllergies:* BLEACH (Critical)* BEE STINGS (Critical)* LATEX (Critical)* SEASONAL (Moderate)* PLASTIC TAPE (Moderate)Orders:T-4 free [CPT-40750] TSH [CPT-12678] COMP METABOLIC PANEL [CPT-59273] CBC W/DIFF [CPT-39365] LIPID PANEL [CPT-46532] Telephone E&M 21-30 min Medical Discussion [CPT-18926] Follow-Up Return to clinic: 8-9 weeks for follow up Name Value Range Interpretation Code Description Data Kelly rce(s) Supporting Document(s) ID Date Data Source [id number] 11/25/2019 10:32:29 AM EDT [facility] Labs In-House Blood TestsDate/Time Colle cted: November 25, 2019 9:10 AMTest Result Reference Range Normal ValueComments: blood draw done in office, taken from right ac, tolerated well.Maddy Pascual, November 25, 2019 10:34 AMAssessment & Plan Orders:[id number] Vst-Est Level I [CPT-88229] [id number] - Venipuncture [CPT-68160] Electronically signed by Kacy TERRY on 11/28 at 10:38 AM Name Value Range Interpretation Code Description Data Kelly rce(s) Supporting Document(s) ID Date Data Source [id number] 11/25/2019 09:20:00 AM EDT [facility] Name Value Range Interpretation Code Description Data Kelly rce(s) Supporting Document(s) HCT 42.7 % 36.0-47.0 N [facility] HGB 13.7 g/dL 12.0-15.5 N [facility] MCH 32.1 G/DL pg 32.0-36.[address] [facility] MCHC 29.8 PG % 27.0-33.0 [facility] PLATELETS 354 10 10*3/mm3 150-450 N [facility] RBC 4.60 10 10*6/mm3 4.00-5.40 N [facility] RDW 12.5 % 11.5-14.5 N [facility] WBC TOTAL 5.9 4.0-10.0 N [facility] ID Date Data Source [id number] 11/25/2019 09:20:00 AM EDT [facility] Name Value Range Interpretation Code Description Data Kelly rce(s) Supporting Document(s) VIT D25 TOT 25.4 ng/mL 30.0-100.0 L [facility] BG FASTING 92 mg/dL 70-100 N [facility] T4, FREE 0.92 ng/dL 0.76-1.46 N [facility] TSH 4.320 microintl units/mL 0.358-3.740 H [facility] ID Date Data Source [id number] 11/25/2019 09:20:00 AM EDT [facility] Name Value Range Interpretation Code Description Data Kelly rce(s) Supporting Document(s) HGBA1C 4.9 % N [facility] ID Date Data Source [id number] 10/23/2019 01:53:33 PM EDT [facility] Measurements & CalculationsHeight: 64 inches (5 ft. 4 in.) 162.56 cm Weight: 128 pounds 2 oz. 58.24 kg Body Mass Index (BMI): 22.07BMI Interpretation: Healthy WeightBody Surface Area (BSA): 1.62Weight Management Education Done (Nutrition/Physical Activity)Vital SignsTemperature: 98.2FPulse Rate: 96 beats/minuteRespiratory Rate: 14 respirations/minuteBlood Pressure: 106/68 O2 Saturation: 93% Vital Signs performed by: Priscilla Kuo LPN, October 23, 2019 1:55 PMVital Signs performed by: Priscilla Kuo LPN, October 23, 2019 1:55 PMInitial Intake Information from: patientRoom #: 8Smoking, Tobacco, Vaping or Smoke Exposure StatusSmoke Status: current every day smokerTobacco Use: YesAdv to Quit: YesDo you vape? NoPassive Smoke Exposure: YesMenstrual HistoryAny possibility of ? NoComments: tubes tied Healthcare HistorySince your last office visit...Have you been admitted to the hospital? NoHave you been to an emergency room (ER) or urgent care clinic? Yes - [facility] Positive for flu B Have you seen another healthcare provider? NoHave you seen a dentist? NoRate Your HealthIn general, would you say your health is? Very GoodPain AssessmentAre you currently having any pain which... You would like your provider to address? No Affects your activity level? NoDepression Screening - PHQ-2Over the last two weeks, have you... Had little interest or pleasure in doing things? Not at all Been feeling down, depressed, or hopeless? Not at all PHQ-2 Score: 0Anxiety Screening - ELVER-2Over the last two weeks, have you been... Feeling nervous, anxious, or on edge? Not at all Unable to stop or control worrying? Not at all ELVER-2 Score: 0Food InsecurityWithin the past year...Did you worry whether your food would run out before you got money to buy more? NoWas there a time when the food you bought didn't last and you didn't have money to get more? NoInfectious Disease / Travel ScreeningRecent travel for you, your family, and/or any sexual partners? NoScreening, Brief Intervention, & Referral to Treatment (SBIRT)Pre-Screening Questions How many times have you have 4 or more drinks in a day? 0How many times have you used an illegal drug or used a prescription medication for a non-medical reason? 0Performed by: Priscilla Kuo LPN, October 23, 2019 2:04 PMPatient History Medical History:AsthmaAnxiety DisorderDepressionSurgical History:UnremarkableFamily History:Family History of AlcoholismFamily History of AnemiaFamily History of ArthritisFH of AnxietyFamily History of AsthmaFH DepressionFH DiabetesFH High CholesterolFH Lung/Respiratory DiseaseFH MigrainesFH StrokeFH Thyroid ProblemsFH HeadachesFH Psychiatric CareFH CaSocial/Personal History: Advised to Quit/Tobacco Education: YesChief Complaintfollow-up visit Meds room 8History of Present Illness (HPI)34 YO female here for follow up on meds,Pt requesting refill on Migraine med Pt states migraine headaches 1-3 ttimes per monthPt also concerned with ongoing loss of weight and chronic low back pain. Pt states will be going to [facility] for management of her Bipolar. HPI performed by: Kacy TERRY, October 23, 2019 3:00 PMTransitions of Care InboundProblem ReviewProblem List was reviewed and/or updated during this visit.Medication Reconciliation & ReviewMedication List was reviewed and/or updated during this visit, including review of any trfu-pzd-umivafo medications, herbal therapies, and/or supplements.Allergy ReviewAllergy List was reviewed and/or updated during this visit.Adult Preventive CareProvider Calculated and Reviewed all Clinical Protocols for patient today. Screening Tobacco Screening: Smoking Status: current every day smoker (10/23/2019) Tobacco Use: Currently (10/23/2019) Advised to Quit: Yes (10/23/2019)Labs/Meds/Other Counseling-Nutrition and Physical Activity:BMI Interpretation: Healthy Weight (10/23/2019) Counseling: Done (10/23/2019) Physical Activity: Done (10/23/2019)Cancer Screening Pap Smear/HPV TestingReviewed: Previous Comments: 2 years ago [facility] (07/23/2019)Today's Comments: would like to be seen here for Pap smear Review of Systems General: Complains of headache. Denies loss of appetite, chills, dizziness, fatigue, fever, continued fever, feeling ill, sweats, night sweats, sleep disturbances, weight loss. Eyes: Denies blurring of vision, double vision, irritation, discharge, vision loss, eye pain, eye swelling, droopy eyelid, sensitivity to light, redness, itching. Ears/Nose/Throat: Denies earache, ear discharge, ringing in ears, decreased hearing, nasal congestion, nosebleeds, runny nose, sore throat, hoarseness, difficulty swallowing, dry mouth, tooth pain, bleeding gums, swollen glands. Cardiovascular: Denies chest pain, palpitations, feeling faint, trouble breathing w/exertion, SOB upon lying down, SOB at night, peripheral edema, elevated blood pressure, decreased heart rate. Respiratory: Denies cough, difficulty breathing, shortness of breath, excessive sputum, coughing up blood, wheezing, chest pain. Breast: Denies discoloration, tenderness, breast changes, breast lump, nipple discharge. Gastrointestinal: Denies nausea, vomiting, bleeding, burning, itching, irri tation, cramps, diarrhea, constipation. Genitourinary: Denies urinary incontinence, pain with urination, burning with urination, urinary frequency, urinary hesitancy, urinary urgency, urinary urgency at night, incomplete emptying, blood in urine, pelvic pain. Musculoskeletal: Denies back pain, joint pain, leg pain, joint swelling, body aches, muscle aches, muscle cramps, muscle weakness, stiffness, recent injury. Skin: Denies rash, hives, redness, itching, dryness, nail changes, suspicious lesions, athlete's foot, rash on palms, rash on bottom of feet. Neurologic: Denies muscle impairment, weakness, numbness/tingling, seizures, slurred speech, feeling faint, tremors, vertigo, paralysis on one side, paralysis on both sides. Psychiatric: Complains of depression, anxiety. Denies memory loss, mental disturbance, suicidal ideation, homicidal ideation, hallucinations, paranoia, feeling stressed, hearing voices. Endocrine: Denies cold intolerance, heat intolerance, excessive thirst, excessive hunger, excessive urination, weight loss, weight gain. Physical ExamGeneral Appearance: well nourished, well hydrated, no acute distressEyes, External: conjunctivae and lids normal, EOMIRespiratory, Auscultation: clear to auscultation bilaterally; no rales, rhonchi, or wheezesRespiratory, Effort: no intercostal retractions or use of accessory musclesCardiovascular, Auscultation: S1, S2 audible; no murmur, rub, or gallop; RRRPeripheral Circulation: no clubbing, cyanosis, edema, or varicositiesAbdomen: soft, non-tender, no masses, bowel sounds normalGait & Station: normalBack: lumbar tenderness on palpation. Skin, Inspection: no rashes, lesions, or ulcerationsOrientation: oriented to time, place, and personMood & Affect: no depression, anxiety, or agitationJudgment & Insight: intactCare Management Plan Transitions of CareInboundRate Your HealthIn general, would you say your health is? Very GoodAssessment & Plan Problems:Added: Chronic low back pain (ICD-724.2) (ICD10- M54.5) Assessment: takes mucle relaxer and trylenol. Instructions: We have made a referral for you today. We will contact you to set this up.May continue medications as prescribed. May use moist heat as needed 3-4 times daily for 15- 20 minutes each time.Loss of weight (ICD-783.21) (XID90-J48.4) Assessment: Instructions: labs ordered today for eval. Please try to maintain healthy diet and physical activities. Please try to maintain aequate fluid intake.Health Screening (ICD-V70.0) (WEP33-X69.9) Assessment: Fasting labs ordered today.Assessed:MIGRAINE HEADACHE (ICD-346.90) (LLK35-E07.909) Assessment: Instructions: We have sent a prescription to your pharmacy. Please take medication as prescribed. Please report any major side effectsBIPOLAR DISORDER UNSPECIFIED (ICD-296.80) (OMH19-I21.9) Assessment: Pt states switching services to [facility]. Instructions: Please try to keep your scheduled appiontment with your specialist.Assessment not Saved BIPOLAR DISORDER UNSPECIFIED (JNQ92-Q66.9): Patient Instructions/Care Plan: MIGRAINE HEADACHE: We have sent a prescription to your pharmacy. Please take medication as prescribed. Please report any major side effectsBIPOLAR DISORDER UNSPECIFIED: Please try to keep your scheduled appiontment with your specialist.Chronic low back pain: We have made a referral for you today. We will contact you to set this up.May continue medications as prescribed. May use moist heat as needed 3-4 times daily for 15- 20 minutes each time.Loss of weight: labs ordered today for eval. Please try to maintain healthy diet and physical activities. Please try to maintain aequate fluid intake. Plan developed in collaboration with patient and/or familyMedications:SUMATRIPTAN SUCCINATE 25 MG ORAL TABLETTYLENOL 325 MG ORAL TABLETLATUDA 60 MG ORAL TABLETLITHIUM CARBONATE 300 MG ORAL TABLETMedication Changes:New Prescription:SUMATRIPTAN SUCCINATE 25 MG ORAL TABLET-take one tablet by mouth on onset of headache may repeat dose x 1 after 2 hours. Qty: 9[Tablet] Refills: 1 Method: ElectronicRemoved:TESSALON PERLES 100 MG ORAL CAPSULE-1 capsule by mouth three times per day as needed for cough, IPRATROPIUM BROMIDE 0.06 % NASAL SOLUTION-2 sprays each nostril every dayAllergies:* BLEACH (Critical)* BEE STINGS (Critical)* SEASONAL (Moderate)* PLASTIC TAPE (Moderate)Orders:Orthopaedics Consult [CPT-73240] COMP METABOLIC PANEL [CPT- 90971] CBC W/DIFF [CPT-78160] HgBA1c [CPT-72442] LIPID PANEL [CPT-23442] TSH [CPT-40429] T-4 free [CPT-72507] Vitamin D 250H Unspecified [CPT-54356] URINALYSIS [CPT-94771] VITAMIN B-12 [CPT-17764] Folate (Folic Acid Serum) [CPT- 06549] Adult - Ofc Vst, EST, Level IV [CPT-27678] Follow-Up Return to clinic: 6 weeks for follow up Additional Follow-Up: one week prior for blood workClinical Visit Summary CompletedMedications:SUMATRIPTAN SUCCINATE 25 MG ORAL TABLET (SUMATRIPTAN SUCCINATE) take one tablet by mouth on onset of headache may repeat dose x 1 after 2 hours. #9[Tablet] x 1 Route:ORAL Entered and Authorized by: Kacy TERRY Method used: Electronically to [facility]* (retail) [address] [place] [address] Note to Pharmacy: Route: ORAL; Indications: MIGRAINE HEADACHE RxID: [id number]] Name Value Range Interpretation Code Description Data Kelly rce(s) Supporting Document(s) Procedure Social History Code Duration Value Status Description Data Source(s ) Smoking 10/14/2019 12:00:00 AM EST Unknown if ever smoked comp leted Unknown if ever smoked [facility] ([facility]) Smoking 09/23/2019 12:00:00 AM EST Unknown if ever smoked comp leted Unknown if ever smoked [facility] ([facility] Smoking 08/22/2019 12:00:00 AM EST Unknown if ever smoked comp leted Unknown if ever smoked [facility] ([facility]) Smoking 08/14/2019 12:00:00 AM EST Unknown if ever smoked comp leted Unknown if ever smoked [facility] ([facility]) Vital Signs ID Date Data Source UNK Name Value Range Interpretation Code Description Data Source(s) Diastolic blood pressure 75 mm[Hg] 75 mm[Hg] PAULINA ([facility]) Body weight 2018 [oz_av] 2018 [oz_av] PAULINA ([facility]) Systolic blood pressure 112 mm[Hg] 112 mm[Hg] A LINDAToan ([facility]) Body mass index (BMI) [Ratio] 21.6 kg/m2 21.6 k g/m2 PAULINA ([facility]) Body height 64 [in_i] 64 [in_i] PAULINA ([facility]) Body height 64 [in_i] 64 [in_i] PAULINA ([facility]) Body weight 0.08 [oz_av] 2050.08 [oz_av] ATH CARLOS ([facility]) Systolic blood pressure 106 mm[Hg] 106 mm[Hg] A THENA ([facility]) Body height 64 [in_i] 64 [in_i] PAULINA ([facility]) Diastolic blood pressure 68 mm[Hg] 68 mm[Hg] PAULINA ([facility]) Patient Treatment Plan of Care Planned Activity Planned Date Details Description Data Source (s) paroxetine 30 mg tablet ATHE NA ([facility]) paroxetine 10 mg tablet ATHE NA ([facility]) 12 HR Guaifenesin 600 MG Extended Release Oral Tablet PAULINA ([facility]) lithium citrate 60 MG/ML Oral Solution PAULINA ([facility]) Lurasidone Hydrochloride 60 MG Oral Tablet [Latuda] PAULINA ([facility]) ipratropium bromide 42 mcg (0.06 %) nasal spray PAULINA ([facility]) benzonatate 100 MG Oral Capsule PAULINA ([facility]) Azithromycin 250 MG Oral Tablet PAULINA ([facility])
[2020-09-29] MEDS ORDERED: SUMA25TA3 (11:58)
[2020-09-29] MEDS ORDERED: DULO1CAP6 PO (11:58)
[2020-09-29] MEDS ORDERED: DIPH50CA29 PO (11:58)
[2020-09-29] MEDS ORDERED: PENI500T PO (12:14)
--- OUTSIDE RECORDS SUMMARY | 2020-09-29 12:25 | CCD ---
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 PAULINA ([facility]) Systolic blood pressure 112 mm[Hg] 112 mm[Hg] A LINDAToan ([facility]) Body mass index (BMI) [Ratio] 21.6 kg/m2 21.6 k g/m2 PAULINA ([facility]) Body height 64 [in_i] 64 [in_i] PAULINA ([facility]) Body height 64 [in_i] 64 [in_i] PAULINA ([facility]) Body weight 0.08 [oz_av] 2050.08 [oz_av] ATH CARLOS ([facility]) Systolic blood pressure 106 mm[Hg] 106 mm[Hg] A THENA ([facility]) Body height 64 [in_i] 64 [in_i] PAULINA ([facility]) Diastolic blood pressure 68 mm[Hg] 68 mm[Hg] PAULINA ([facility]) Patient Treatment Plan of Care Planned Activity Planned Date Details Description Data Source (s) paroxetine 30 mg tablet ATHE NA ([facility]) paroxetine 10 mg tablet ATHE NA ([facility]) 12 HR Guaifenesin 600 MG Extended Release Oral Tablet PAULINA ([facility]) lithium citrate 60 MG/ML Oral Solution PAULINA ([facility]) Lurasidone Hydrochloride 60 MG Oral Tablet [Latuda] PAULINA ([facility]) ipratropium bromide 42 mcg (0.06 %) nasal spray PAULINA ([facility]) benzonatate 100 MG Oral Capsule PAULINA ([facility]) Azithromycin 250 MG Oral Tablet PAULINA ([facility])
== END 2020-09-29 12:25 | disposition home or self-care (01) ==
LOC: M ED 11:40
DX: J02.0 Streptococcal pharyngitis (principal); E11.9 Type 2 diabetes mellitus without complications; K21.9 Gastro-esophageal reflux disease without esophagitis; F17.200 Nicotine dependence, unspecified, uncomplicated; Z79.899 Other long term (current) drug therapy; Z91.030 Bee allergy status; Z91.040 Latex allergy status; Z88.8 Allergy status to other drugs, medicaments and biological substances

== ENCOUNTER 2020-10-09 16:03 | Emergency (ER) | payer OTHER ==
[~2020-10-09] VITALS: Ht 165.1 cm; Wt 58.1 kg
[~2020-10-09 16:03] MED LIST changes: +DIPH50CA29 PO; +DULO1CAP6 PO; +PENI500T PO; +SUMA25TA3
[2020-10-09] MEDS ORDERED: IBUP200C25 PO (16:31)
--- NOTE | 2020-10-09 17:18 | REP ---
INDICATION: right ankle pain; fall COMPARISON: None. TECHNIQUE: Four views right ankle. FINDINGS: There is no evidence of acute fracture, dislocation, or intrinsic bone disease.The ankle mortise is anatomic. IMPRESSION: No fracture or dislocation. <Electronically signed by Kang Jamil > 10/09/20 7330
[2020-10-09 17:41] VITALS: BP 110/66
== END 2020-10-09 17:52 | disposition home or self-care (01) ==
LOC: M ED 16:03
DX: S93.401A Sprain of unspecified ligament of right ankle, initial encounter (principal); X50.1XXA Overexertion from prolonged static or awkward postures, initial encounter; Y92.099 Unspecified place in other non-institutional residence as the place of occurrence of the external cause; Y93.9 Activity, unspecified; Y99.9 Unspecified external cause status; E11.9 Type 2 diabetes mellitus without complications; F31.9 Bipolar disorder, unspecified; F90.9 Attention-deficit hyperactivity disorder, unspecified type; F95.2 Tourette's disorder; F42.9 Obsessive-compulsive disorder, unspecified; K21.9 Gastro-esophageal reflux disease without esophagitis; F44.5 Conversion disorder with seizures or convulsions; J45.909 Unspecified asthma, uncomplicated; Z79.899 Other long term (current) drug therapy; Z88.8 Allergy status to other drugs, medicaments and biological substances; Z91.030 Bee allergy status; Z91.040 Latex allergy status

== ENCOUNTER 2021-03-08 20:36 | Emergency (ER) | payer OTHER ==
[~2021-03-08] VITALS: Ht 165.1 cm; Wt 64.9 kg
[2021-03-08 20:36] VITALS: BP 158/90
[~2021-03-08 20:36] MED LIST changes: +IBUP200C25 PO
[2021-03-08] MEDS ORDERED: AMOX875T PO (20:44)
[2021-03-08] MEDS ORDERED: AUGMENTIN 875 MG TAB PO ONE (22:05)
[2021-03-08] MEDS ORDERED: AUGM875T28 PO (22:16)
== END 2021-03-08 22:24 | disposition home or self-care (01) ==
LOC: M ED 20:36
DX: S61.011A Laceration without foreign body of right thumb without damage to nail, initial encounter (principal); S51.832A Puncture wound without foreign body of left forearm, initial encounter; W54.0XXA Bitten by dog, initial encounter; Y92.099 Unspecified place in other non-institutional residence as the place of occurrence of the external cause; Y93.9 Activity, unspecified; Y99.9 Unspecified external cause status; J45.909 Unspecified asthma, uncomplicated; K21.9 Gastro-esophageal reflux disease without esophagitis; F31.9 Bipolar disorder, unspecified; F95.8 Other tic disorders; F90.0 Attention-deficit hyperactivity disorder, predominantly inattentive type; F42.9 Obsessive-compulsive disorder, unspecified; F84.5 Asperger's syndrome; F17.200 Nicotine dependence, unspecified, uncomplicated; Z79.899 Other long term (current) drug therapy; Z91.030 Bee allergy status; Z91.040 Latex allergy status; Z88.8 Allergy status to other drugs, medicaments and biological substances

== ENCOUNTER 2021-10-23 21:43 | Emergency (ER) | payer OTHER ==
[~2021-10-23] VITALS: Ht 172.7 cm; Wt 71.0 kg
[~2021-10-23 21:43] MED LIST changes: +AMOX875T PO
[2021-10-23 22:22] VITALS: BP 144/84
[2021-10-23 22:51] LABS: HEMATOCRIT 34.3 % (36.0-47.0); HEMOGLOBIN 10.5 g/dl (12.0-15.5); MEAN CORPUSCULAR HEMOGLOBIN 23.1 pg (27.0-33.0); MEAN CORPUSCULAR HGB CONC 30.6 g/dl (32.0-36.5); MEAN CORPUSCULAR VOLUME 75.4 fl (80.0-96.0); PLATELET COUNT, AUTOMATED 441 10^3/uL (150-450); RED BLOOD COUNT 4.55 10^6/uL (4.00-5.40); WHITE BLOOD COUNT 6.5 10^3/uL (4.0-10.0)
[2021-10-23 23:12] LABS: AMPHETAMINES LEVEL URINE NEGATIVE (NEGATIVE); BARBITURATES URINE NEGATIVE (NEGATIVE); BENZODIAZEPINES URINE NEGATIVE (NEGATIVE); CANNABINOIDS URINE NEGATIVE (NEGATIVE); COCAINE METABOLITE URINE NEGATIVE (NEGATIVE); METHADONE URINE NEGATIVE (NEGATIVE); OPIATES URINE NEGATIVE (NEGATIVE); PHENCYCLIDINE URINE NEGATIVE (NEGATIVE)
[2021-10-23 23:27] LABS: HCG, SERUM QUALITATIVE NEGATIVE (NEGATIVE)
[2021-10-23 23:34] LABS: ALBUMIN 4.2 GM/DL (3.2-5.2); ALT/SGPT 18 U/L (12-78); BILIRUBIN,DIRECT 0.1 MG/DL (0.0-0.2); BILIRUBIN,TOTAL 0.4 MG/DL (0.2-1.0); BLOOD UREA NITROGEN 10 MG/DL (7-18); CARBON DIOXIDE LEVEL 27 MEQ/L (21-32); CHLORIDE LEVEL 108 MEQ/L (98-107); CREATININE FOR GFR 0.76 MG/DL (0.55-1.30); GLOMERULAR FILTRATION RATE > 60.0 (>60); GLUCOSE, FASTING 75 MG/DL (70-100); POTASSIUM SERUM 3.5 MEQ/L (3.5-5.1); SALICYLATE LEVEL 2.5 MG/DL (5.0-30.0); SODIUM LEVEL 140 MEQ/L (136-145); TOTAL PROTEIN 7.8 GM/DL (6.4-8.2)
[2021-10-23 23:35] LABS: ACETAMINOPHEN LEVEL < 2.0 UG/ML (10.0-30.0); ETHYL ALCOHOL (ETHANOL) < 0.003 % (0.000-0.010)
== END 2021-10-24 01:40 | disposition home or self-care (01) ==
LOC: M ED 21:43
DX: F43.0 Acute stress reaction (principal); F31.9 Bipolar disorder, unspecified; F95.2 Tourette's disorder; K21.9 Gastro-esophageal reflux disease without esophagitis; J45.909 Unspecified asthma, uncomplicated; F44.5 Conversion disorder with seizures or convulsions; M19.90 Unspecified osteoarthritis, unspecified site; M41.9 Scoliosis, unspecified; M51.9 Unspecified thoracic, thoracolumbar and lumbosacral intervertebral disc disorder; F17.200 Nicotine dependence, unspecified, uncomplicated; F12.10 Cannabis abuse, uncomplicated; Z79.899 Other long term (current) drug therapy; Z91.030 Bee allergy status; Z91.040 Latex allergy status; Z88.8 Allergy status to other drugs, medicaments and biological substances

== ENCOUNTER → 2021-11-14 | Outpatient (CLI) | payer OTHER | LOC: M LAB 11:35 | PROVIDERS: ATTEND Nurse Practitioner Family | DX: F31.60 Bipolar disorder, current episode mixed, unspecified (principal) ==

== ENCOUNTER → 2022-01-06 | Outpatient (CLI) | payer OTHER ==
[2022-01-06 15:05] LABS: LITHIUM LEVEL < 0.20 MEQ/L (0.60-1.20)
== END ==
LOC: M LAB 13:51
PROVIDERS: ATTEND Registered Nurse Psychiatric/Mental Health
DX: F31.60 Bipolar disorder, current episode mixed, unspecified (principal)

== ENCOUNTER → 2022-03-18 | Outpatient (CLI) | payer OTHER | LOC: M LAB 14:50 | PROVIDERS: ATTEND Nurse Practitioner Family | DX: F40.10 Social phobia, unspecified (principal); F31.60 Bipolar disorder, current episode mixed, unspecified ==

== ENCOUNTER 2022-05-12 18:12 | Emergency (ER) | payer OTHER ==
[~2022-05-12] VITALS: Ht 175.3 cm; Wt 72.2 kg
[2022-05-12] MEDS ORDERED: IBUPROFEN 600MG TAB PO ONE (20:25)
[2022-05-12] MEDS ORDERED: ACETAMINOPHEN 500 MG TAB PO ONE (20:25)
[2022-05-12 21:45] VITALS: BP 134/61
== END 2022-05-12 21:46 | disposition home or self-care (01) ==
LOC: EDBD 18:12 → M ED 18:12
DX: S80.02XA Contusion of left knee, initial encounter (principal); V43.62XA Car passenger injured in collision with other type car in traffic accident, initial encounter; E11.9 Type 2 diabetes mellitus without complications; Z79.899 Other long term (current) drug therapy; Z88.8 Allergy status to other drugs, medicaments and biological substances; Z91.040 Latex allergy status; Z91.030 Bee allergy status

== ENCOUNTER 2022-05-29 23:58 | Emergency (ER) | payer OTHER ==
[~2022-05-29] VITALS: Ht 175.3 cm; Wt 75.0 kg
[2022-05-29 23:59] VITALS: BP 127/68
== END 2022-05-30 01:59 | disposition left against medical advice (07) ==
LOC: M ED 23:58
DX: Z53.21 Procedure and treatment not carried out due to patient leaving prior to being seen by health care provider (principal)

== ENCOUNTER → 2022-05-29 | Outpatient (CLI) | payer OTHER | LOC: M WHC 14:01 | PROVIDERS: ATTEND Physician Assistant Medical | DX: N64.4 Mastodynia (principal) ==

== ENCOUNTER → 2022-08-11 | Outpatient (CLI) | payer OTHER ==
[2022-08-11 14:01] LABS: BASO % 0.5 % (0.0-1.0); EOS # 0.1 10^3/uL (0.0-0.5); EOS % 1.4 % (0.0-3.0); HEMATOCRIT 32.6 % (36.0-47.0); HEMOGLOBIN 9.4 g/dl (12.0-15.5); LYMPH # 1.2 10^3/uL (1.5-5.0); MEAN CORPUSCULAR HGB CONC 28.8 g/dl (32.0-36.5); MEAN CORPUSCULAR VOLUME 79.7 fl (80.0-96.0); MONO # 0.7 10^3/uL (0.0-0.8); MONO % 10.5 % (2.0-8.0); NEUTROPHILS # 4.3 10^3/uL (1.5-8.5); NEUTROPHILS % 68.4 % (36.0-66.0); PLATELET COUNT, AUTOMATED 476 10^3/uL (150-450); RED BLOOD COUNT 4.09 10^6/uL (4.00-5.40); WHITE BLOOD COUNT 6.3 10^3/uL (4.0-10.0)
[2022-08-11 14:15] LABS: HEMOGLOBIN A1c 4.8 % (4.0-6.0)
[2022-08-11 14:24] LABS: ALBUMIN 3.8 G/DL (3.2-5.2); ALKALINE PHOSPHATASE 91 U/L (46-116); ALT/SGPT 13 U/L (7.0-40); AST/SGOT 17 U/L (<34); BILIRUBIN,TOTAL 0.2 MG/DL (0.3-1.2); BLOOD UREA NITROGEN 8 MG/DL (9-23); CALCIUM LEVEL 9.3 MG/DL (8.5-10.1); CARBON DIOXIDE LEVEL 29 MMOL/L (20-31); CHLORIDE LEVEL 105 MMOL/L (98-107); CHOLESTEROL LEVEL 158 MG/DL (<200); CHOLESTEROL RISK RATIO 3.55 (<5); CREATININE FOR GFR 0.83 MG/DL (0.55-1.30); GLOMERULAR FILTRATION RATE > 60.0 (>60); GLUCOSE, FASTING 87 MG/DL (60-100); HDL CHOLESTEROL 44.4 MG/DL (>40); LDL CHOLESTEROL 104.2 MG/DL (<100); NON-HDL-C 114 MG/DL; POTASSIUM SERUM 4.4 MMOL/L (3.5-5.1); SODIUM LEVEL 140 MMOL/L (136-145); TOTAL PROTEIN 6.9 G/DL (5.7-8.2); TRIGLYCERIDES LEVEL 47 MG/DL (<150)
== END ==
LOC: M PLALAB 11:50
PROVIDERS: ATTEND Family Medicine
DX: Z13.6 Encounter for screening for cardiovascular disorders (principal); J45.20 Mild intermittent asthma, uncomplicated

== ENCOUNTER → 2023-09-25 | Outpatient (CLI) | payer OTHER ==
[2023-09-25 11:37] LABS: HEMOGLOBIN 11.8 g/dl (12.0-15.5); MEAN CORPUSCULAR HEMOGLOBIN 29.4 pg (27.0-33.0); MEAN CORPUSCULAR HGB CONC 31.9 g/dl (32.0-36.5); MEAN CORPUSCULAR VOLUME 92.3 fl (80.0-96.0); PLATELET COUNT, AUTOMATED 417 10^3/uL (150-450); RED BLOOD COUNT 4.01 10^6/uL (4.00-5.40); WHITE BLOOD COUNT 5.6 10^3/uL (4.0-10.0)
[2023-09-25 11:49] LABS: HEMOGLOBIN A1c 4.7 % (4.0-6.0)
[2023-09-25 12:09] LABS: BLOOD UREA NITROGEN 7 MG/DL (9-23); CALCIUM LEVEL 8.7 MG/DL (8.5-10.1); CARBON DIOXIDE LEVEL 27 MMOL/L (20-31); CHLORIDE LEVEL 105 MMOL/L (98-107); CHOLESTEROL LEVEL 155 MG/DL (<200); CREATININE FOR GFR 0.69 MG/DL (0.55-1.30); GLOMERULAR FILTRATION RATE > 60.0 (>60); GLUCOSE, FASTING 80 MG/DL (60-100); HDL CHOLESTEROL 39.7 MG/DL (>40); LDL CHOLESTEROL 88.5 MG/DL (<100); NON-HDL-C 115.3 MG/DL; POTASSIUM SERUM 4.3 MMOL/L (3.5-5.1); SODIUM LEVEL 135 MMOL/L (136-145); TRIGLYCERIDES LEVEL 134 MG/DL (<150)
[2023-09-25 12:11] LABS: THYROID STIMULATING HORMONE 2.058 uIU/ML (0.55-4.78)
[2023-09-25 12:12] LABS: TOTAL 25(OH) VITAMIN D 28.2 NG/ML (20.0-100.0)
== END ==
LOC: M LAB 09:41
PROVIDERS: ATTEND Registered Nurse Psychiatric/Mental Health
DX: F31.60 Bipolar disorder, current episode mixed, unspecified (principal); Z86.59 Personal history of other mental and behavioral disorders; F41.8 Other specified anxiety disorders

== ENCOUNTER 2023-11-02 13:30 | Emergency (ER) | payer OTHER ==
[~2023-11-02] VITALS: Ht 167.6 cm; Wt 56.6 kg
[2023-11-02] MEDS ORDERED: LURA120T (13:50)
[2023-11-02] MEDS ORDERED: CETI-24 (13:50)
[2023-11-02] MEDS ORDERED: TRAZ1TAB11 (13:50)
[2023-11-02] MEDS ORDERED: LAMO100T3 (13:50)
[2023-11-02] MEDS ORDERED: LAMO25TA4 (13:50)
[2023-11-02] MEDS ORDERED: ATOM80CA6 (13:50)
[2023-11-02] MEDS ORDERED: AMOX875T2 PO (16:30)
[2023-11-02] MEDS ORDERED: PERI12LIQ PO (16:30)
[2023-11-02] MEDS ORDERED: PERC5TAB12 PO (16:30)
[2023-11-02 16:48] VITALS: BP 124/80; TEMP 98.9; O2SAT 100
== END 2023-11-02 16:38 | disposition home or self-care (01) ==
LOC: M ED 13:30
DX: M27.3 Alveolitis of jaws (principal); E11.9 Type 2 diabetes mellitus without complications; J45.909 Unspecified asthma, uncomplicated; K21.9 Gastro-esophageal reflux disease without esophagitis; F31.9 Bipolar disorder, unspecified; F95.2 Tourette's disorder; F84.5 Asperger's syndrome; F90.9 Attention-deficit hyperactivity disorder, unspecified type; F42.9 Obsessive-compulsive disorder, unspecified; F17.200 Nicotine dependence, unspecified, uncomplicated; Z79.899 Other long term (current) drug therapy; Z88.8 Allergy status to other drugs, medicaments and biological substances; Z91.040 Latex allergy status; Z91.030 Bee allergy status

== ENCOUNTER → 2024-01-03 | Outpatient (CLI) | payer OTHER ==
[~2024-01-03] MED LIST changes: +AMOX875T2 PO; +ATOM80CA6; +CETI-24; +LAMO100T3; +LAMO25TA4; +LURA120T; +PERC5TAB12 PO; +PERI12LIQ PO; +TRAZ1TAB11
== END ==
LOC: M PLAIMG 16:18
PROVIDERS: ATTEND Family Medicine
DX: M54.41 Lumbago with sciatica, right side (principal); M47.816 Spondylosis without myelopathy or radiculopathy, lumbar region

== ENCOUNTER 2024-03-26 14:02 | Emergency (ER) | payer OTHER ==
[~2024-03-26] VITALS: Ht 167.6 cm; Wt 52.4 kg
[2024-03-26] MEDS ORDERED: LUMA10.5 PO (14:16)
[2024-03-26 17:37] VITALS: BP 123/70; TEMP 99.1; O2SAT 98
[2024-03-26] MEDS ORDERED: HEMO0.1O PR (18:25)
[2024-03-26] MEDS ORDERED: HYDR2.5C21 PR (18:26)
[2024-03-26] MEDS ORDERED: [UNRECOGNIZED DRUG - CODE] EX (18:27)
== END 2024-03-26 18:41 | disposition home or self-care (01) ==
LOC: M ED 14:02
DX: K64.8 Other hemorrhoids (principal); Z91.030 Bee allergy status; Z88.5 Allergy status to narcotic agent; Z91.040 Latex allergy status; Z79.899 Other long term (current) drug therapy

== ENCOUNTER → 2024-04-25 | Outpatient (REF) | payer OTHER ==
[~2024-04-25] MED LIST changes: +HEMO0.1O PR; +HYDR2.5C21 PR; +LUMA10.5 PO; +[UNRECOGNIZED DRUG - CODE] EX
[2024-04-25 18:19] LABS: Trichomonas vaginalis (AMP) NOT DETECTED (NEGATIVE)
[2024-04-25 18:42] LABS: BASO % 0.1 % (0.0-1.0); HEMATOCRIT 39.8 % (36.0-47.0); HEMOGLOBIN 12.5 g/dl (12.0-15.5); LYMPH # 1.9 10^3/uL (1.5-5.0); LYMPH % 21.7 % (24.0-44.0); MEAN CORPUSCULAR HEMOGLOBIN 27.8 pg (27.0-33.0); MEAN CORPUSCULAR HGB CONC 31.4 g/dl (32.0-36.5); MEAN CORPUSCULAR VOLUME 88.4 fl (80.0-96.0); MONO # 0.8 10^3/uL (0.0-0.8); MONO % 8.7 % (2.0-8.0); NEUTROPHILS # 5.9 10^3/uL (1.5-8.5); NEUTROPHILS % 69.3 % (36.0-66.0); PLATELET COUNT, AUTOMATED 546 10^3/uL (150-450); WHITE BLOOD COUNT 8.6 10^3/uL (4.0-10.0)
[2024-04-25 18:43] LABS: GC DNA AMPLIFICATION NEGATIVE (NEGATIVE)
[2024-04-25 18:44] LABS: HEMOGLOBIN A1c 4.9 % (4.0-6.0)
[2024-04-25 19:05] LABS: ALKALINE PHOSPHATASE 96 U/L (46-116); ALT/SGPT 13 U/L (7.0-40); AST/SGOT 12 U/L (<34); BILIRUBIN,TOTAL 0.2 MG/DL (0.3-1.2); BLOOD UREA NITROGEN 10 MG/DL (9-23); CALCIUM LEVEL 9.5 MG/DL (8.5-10.1); CARBON DIOXIDE LEVEL 28 MMOL/L (20-31); CHLORIDE LEVEL 104 MMOL/L (98-107); CHOLESTEROL LEVEL 176 MG/DL (<200); CHOLESTEROL RISK RATIO 4.16 (<5); CREATININE FOR GFR 0.76 MG/DL (0.55-1.30); GLOMERULAR FILTRATION RATE > 60.0 (>60); GLUCOSE, FASTING 67 MG/DL (60-100); HDL CHOLESTEROL 42.3 MG/DL (>40); LDL CHOLESTEROL 109.7 MG/DL (<100); MAGNESIUM LEVEL 2.3 MG/DL (1.8-2.4); NON-HDL-C 133.7 MG/DL; POTASSIUM SERUM 4.6 MMOL/L (3.5-5.1); SODIUM LEVEL 136 MMOL/L (136-145); TOTAL PROTEIN 7.7 G/DL (5.7-8.2); TRIGLYCERIDES LEVEL 120 MG/DL (<150)
[2024-04-25 19:07] LABS: THYROID STIMULATING HORMONE 2.046 uIU/ML (0.55-4.78); TOTAL 25(OH) VITAMIN D 63.5 NG/ML (20.0-100.0)
== END ==
LOC: M LAB REF 16:30
PROVIDERS: ATTEND Nurse Practitioner Family
DX: E55.9 Vitamin D deficiency, unspecified (principal); Z11.9 Encounter for screening for infectious and parasitic diseases, unspecified; R53.83 Other fatigue; R00.0 Tachycardia, unspecified

== ENCOUNTER 2025-03-19 03:34 | Emergency (ER) | payer OTHER ==
[~2025-03-19] VITALS: Ht 167.6 cm; Wt 57.1 kg
[~2025-03-19 03:34] MED LIST changes: +LAMO-18; -LAMO25TA4
[2025-03-19 06:22] VITALS: BP 117/63; TEMP 97.2; O2SAT 100
== END 2025-03-19 06:25 | disposition home or self-care (01) ==
LOC: M ED 03:34
DX: T16.1XXA Foreign body in right ear, initial encounter (principal); W44.8XXA Other foreign body entering into or through a natural orifice, initial encounter; Y92.9 Unspecified place or not applicable; Y93.89 Activity, other specified; Y99.9 Unspecified external cause status; Z91.040 Latex allergy status; Z88.8 Allergy status to other drugs, medicaments and biological substances